=== PATIENT | male | born 1970 | race Caucasian/White ===

== ENCOUNTER 2019-11-03 08:30 | Outpatient (CLI) | payer OTHER, SELFPAY ==
--- NOTE | 2019-11-03 08:42 | US_ITS ---
WS: [id number] ULTRASOUND ABDOMEN LIMITED CLINICAL INFORMATION: ABNORMAL LEVELS OF OTHER SERUM ENZYMES COMPARISON: None. FINDINGS: Liver Size: Normal. Craniocaudal length: 19.0 cm. Echogenicity: Coarse Surface nodularity: None. Mass (size and location): None. Bile ducts Intrahepatic ducts: Normal. Common bile duct diameter: 0.4 cm. Gallbladder Removed Pancreas Normal as visualized. Right kidney: Normal. Hydronephrosis: None. Size: 10.4 cm x 5.3 cm x 4.5 cm. Abdominal aorta and IVC Visualized portions are normal. Ascites: None. US/US abdomen limited 94995 IMPRESSION: 1. Hepatomegaly with diffuse fatty infiltration the liver. 2. Gallbladder has been removed. 3. Normal common bile duct. 4. No hydronephrosis in right kidney.
== END 2019-11-03 08:31 | disposition home or self-care (01) ==
PROVIDERS: Visit Provider Nurse Practitioner Family
DX: R74.8 Abnormal levels of other serum enzymes (principal); K76.0 Fatty (change of) liver, not elsewhere classified; K76.89 Other specified diseases of liver
CPT/HCPCS: 76705

== ENCOUNTER 2019-12-06 11:53 | Outpatient (CLI) | payer OTHER, SELFPAY ==
[2019-12-06 12:02] VITALS: BMI 33.3
--- NOTE | 2019-12-06 12:03 | ECG_ITS ---
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 Interpretive Statements NAME OF STUDY: TREADMILL STRESS ECHOCARDIOGRAM INDICATION: Chest Pain PROCEDURE: At the baseline, the patient's blood pressure was 123/98 with a heart rate of 87. The baseline electrocardiogram showed normal sinus rhythm with nonspecific T wave changes.. The patient exercised for 12 minutes on a standard Cesar protocol. Patient attained a maximum heart rate of 158 beats per minute(92 % of the maximum predicted heart rate) with a blood pressure at the peak exercise of 139/79 mm Hg. The EKG at the peak exercise revealed some nonspecific ST changes. Patient did not have any chest pain or any significant cardiac arrhythmias with the exercise During the recovery phase, there were no new changes. Blood pressure at the end of the recovery phase was not obtained Hg with a heart rate of 96 per minute. CONCLUSION: 1. Nonspecific EKG response to treadmill exercise 2. No exercise-induced chest pain or cardiac arrhythmia 3. Good exercise tolerance, attained a maximum of 13.5 METs Electronically Signed On 12-07-2019 22:29:27 CDT by Leonides Claros M.D. [email or web address]
--- NOTE | 2019-12-06 13:00 | USCV_ITS ---
Stress Echo Adam Claros Age: 49 Gender: M : 1970 Exam Date: 12/06/2019 13:09 Ordering Phys: Leonides Claros MD ([email or web address]) Technologist: Maame Malhotra [place] [facility] [place]: CHEST PAIN Rhythm: Sinus Patient History: Chest pain, Hypertension, Former smoker Cardiac Medications: Dihydropyridine calcium channel alva Medications in past 24 hours: NONE Contrast: Stress Results Protocol: Cesar Total dose(mL): Exercise Duration (min:sec): 12:00 METS: 13.5 Resting HR: 87 Resting BP: 123 / 98 Peak HR: 158 Peak BP: 151 / 98 Max Predicted HR: 170 93 % Max Predicted HR Target HR: 145 Double Product: 52339 Stress Summary: The patient's target heart rate was achieved BP Response: Normal Reason for Termination: Test terminated after reaching target heart rate (85% max predicted) Cardiac Symptoms: Short of Breath ECG Analysis Resting ECG: Please see separate report Stress ECG: Please see separate report Arrhythmia: Please see separate report MEASUREMENTS (Male/Female) Normal Values FINDINGS Baseline echocardiogram revealed normal LV size and ejection fraction. Segmental wall motion analysis revealing no gross wall motion normalities. Mild concentric left and right hypertrophy. Mitral valve appears to have normal morphology. No pericardial effusion. Normal aortic annulus. With a peak exercise, there was good augmentation of all the segments with no exercise-induced wall motion abnormalities. During the recovery phase, there was no new wall motion abnormalities. CONCLUSIONS 1. Normal echocardiographic response to treadmill exercise 2. No significant coronary ischemia, based on the above findings Dr Leonides Claros MD FAC (Electronically Signed) Final Date: 06 December 2019 20:05 S
[2019-12-06 13:49] VITALS: BP 137/68; PULSE 68
== END 2019-12-06 11:54 | disposition home or self-care (01) ==
LOC: CDL 11:55
PROVIDERS: Visit Provider Internal Medicine Cardiovascular Disease
DX: R07.9 Chest pain, unspecified (principal)
CPT/HCPCS: 93017; 93350

== ENCOUNTER 2020-05-08 14:02 | Outpatient (RCR) | payer OTHER, SELFPAY | END 2020-05-19 23:59 | disposition home or self-care (01) | LOC: SPT 14:02 | PROVIDERS: PCP Nurse Practitioner Family; Referring Provider Nurse Practitioner Family; Visit Provider Nurse Practitioner Family | DX: M25.512 Pain in left shoulder (principal) | CPT/HCPCS: 97110; 97140; 97161 ==

== ENCOUNTER 2020-05-20 06:00 | Outpatient (RCR) | payer OTHER, SELFPAY | END 2020-06-16 23:59 | disposition home or self-care (01) | LOC: SPT 06:00 | PROVIDERS: PCP Nurse Practitioner Family; Referring Provider Nurse Practitioner Family; Visit Provider Nurse Practitioner Family | DX: M25.512 Pain in left shoulder (principal) | CPT/HCPCS: 97110 ==

== ENCOUNTER 2020-06-17 06:00 | Outpatient (RCR) | payer OTHER, SELFPAY | END 2020-07-17 23:59 | disposition home or self-care (01) | LOC: SPT 06:00 | PROVIDERS: PCP Nurse Practitioner Family; Referring Provider Nurse Practitioner Family; Visit Provider Nurse Practitioner Family | DX: M25.512 Pain in left shoulder (principal) | CPT/HCPCS: 97032; 97110 ==

== ENCOUNTER 2021-02-18 13:53 | Outpatient (CLI) | payer OTHER, SELFPAY ==
--- NOTE | 2021-02-18 14:02 | XR_ITS ---
WS: [id number] LEFT CALCANEUS TECHNIQUE: Lateral and tangential view. HISTORY: PAIN IN LEFT FOOT COMPARISON: None available. Calcaneus is intact with no fracture or bone destruction. No soft tissue swelling or spurring. Minima l enthesopathy at the Achilles tendon attachment. XR/XR calcaneus LT min 2V 44821 IMPRESSION: 1. No fracture or calcaneal spur. 2. Enthesopathy at the Achilles tendon attachment.
--- NOTE | 2021-02-18 14:02 | XR_ITS ---
WS: [id number] RIGHT CALCANEUS TECHNIQUE: Lateral and tangential view. HISTORY: PAIN IN RIGHT FOOT COMPARISON: None available. Calcaneus is intact with no fracture or bone destruction. No soft tissue swelling or spurring. XR/XR calcaneus RT min 2V 16422 IMPRESSION: Normal RIGHT calcaneus.
== END 2021-02-18 13:54 | disposition home or self-care (01) ==
PROVIDERS: PCP Nurse Practitioner Family; Visit Provider Nurse Practitioner Family
DX: M79.671 Pain in right foot (principal); M79.672 Pain in left foot
CPT/HCPCS: 73650

== ENCOUNTER → 2021-03-31 08:41 | Outpatient (BNVA) | payer OTHER, SELFPAY | PROVIDERS: PCP Nurse Practitioner Family; Referring Provider Nurse Practitioner Family; Visit Provider Podiatrist Foot & Ankle Surgery | DX: M21.41 Flat foot [pes planus] (acquired), right foot (principal); M21.42 Flat foot [pes planus] (acquired), left foot; M72.2 Plantar fascial fibromatosis; M79.671 Pain in right foot; M79.672 Pain in left foot | CPT/HCPCS: 73630 ==

== ENCOUNTER 2021-03-31 09:22 | Outpatient (CLI) | payer OTHER, SELFPAY | END 2021-03-31 09:23 | disposition home or self-care (01) | LOC: SPT 09:23 | PROVIDERS: PCP Nurse Practitioner Family; Visit Provider Podiatrist Foot & Ankle Surgery | DX: Z46.89 Encounter for fitting and adjustment of other specified devices (principal); M79.673 Pain in unspecified foot; M21.41 Flat foot [pes planus] (acquired), right foot; M21.42 Flat foot [pes planus] (acquired), left foot; M72.2 Plantar fascial fibromatosis | CPT/HCPCS: 97760; L4397 ==

== ENCOUNTER 2021-04-17 10:51 | Outpatient (CLI) | payer OTHER, SELFPAY | END 2021-04-17 10:52 | disposition home or self-care (01) | LOC: SPT 10:51 | PROVIDERS: PCP Nurse Practitioner Family; Visit Provider Podiatrist Foot & Ankle Surgery | DX: Z46.89 Encounter for fitting and adjustment of other specified devices (principal); S82.831D Other fracture of upper and lower end of right fibula, subsequent encounter for closed fracture with routine healing; X58.XXXD Exposure to other specified factors, subsequent encounter | CPT/HCPCS: 97760; L3030 ==

== ENCOUNTER 2021-11-15 12:18 | Emergency (ER) | payer OTHER, SELFPAY ==
--- NOTE | 2021-11-15 12:29 | ECG_ITS ---
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 Measurements Intervals [place] Rate: 77 P: 28 NC: 154 QRS: 17 QRSD: 102 T: 14 QT: 383 QTc: 435 Interpretive Statements SINUS RHYTHM INTERPRETATION BASED ON A DEFAULT AGE OF 40 YEARS Compared to ECG 03/21/2017 08:19:43 No significant changes Electronically Signed On 11-16-2021 10:31:17 CDT by Stan Hurtado M.D. [id number]
[2021-11-15 12:31] VITALS: BP 125/79; PULSE 81; RESP 16; TEMP 36.8; O2SAT 96; BMI 33.2
[2021-11-15 13:12] LABS: Basophils # 0.1 10^3/uL (0.0-0.1); Basophils % 1.3 %; Eosinophils # 0.2 10^3/uL (0.0-0.8); Eosinophils % 2.9 %; Hematocrit 45.1 % (42.0-52.0); Hemoglobin 15.4 g/dL (11.7-16.6); Lymphocytes # 1.1 10^3/uL (0.8-4.8); Lymphocytes % 16.5 %; Mean Corpuscular HGB Conc 34.1 g/dL (30.0-36.0); Mean Corpuscular Hemoglobin 29.8 pg (28.0-34.0); Mean Corpuscular Volume 87.2 fl (80-94); Monocytes # 0.3 10^3/uL (0.2-0.9); Neutrophils # 5.07 10^3/uL (1.8-7.7); Nucleated Red Blood Cells % 0 %; Platelet Count 266 10^3/cmm (130-400); Red Blood Count 5.17 10^6/uL (4.1-5.3); Red Cell Distribution Width 12.8 % (12.1-15.1); White Blood Count 6.9 10^3/uL (4.0-10.0)
[2021-11-15 13:21] LABS: Alanine Aminotransferase 54 U/L (0-41); Alkaline Phosphatase 83 IU/L (40-130); Anion Gap 14.5 (5-19); Aspartate Amino Transferase 28 U/L (0-40); Blood Urea Nitrogen 8 mg/dL (6-20); Calcium 9.5 mg/dL (8.5-10.5); Carbon Dioxide 28 mmol/L (22-29); Chloride 102 mmol/L (98-107); Globulin 2.2 g/dL (1.3-4.6); Glomerular Filtration Rate 118.4 mL/min (90-130); Glucose 125 mg/dL (65-115); Osmolality Calculated 292 mOsm/kg (285-295); Potassium 3.5 mmol/L (3.5-5.1); Sodium 141 mmol/L (136-145); Total Bilirubin 0.4 mg/dL (0.15-1.2); Total Protein 7.2 g/dL (6.6-8.7); Troponin(5th) Baseline 6 ng/L (0-15)
[2021-11-15 13:34] VITALS: BP 143/85; PULSE 74; RESP 16; O2SAT 95
--- NOTE | 2021-11-15 13:45 | W.ED.CHESTPA ---
HPI - Chest Pain General: Chief Complaint: Chest Pain Stated Complaint: cp, high BP Time Seen by Provider: 11/15/21 13:37 Source: patient Mode of arrival: ambulatory Limitations: no limitations History of Present Illness: 51-year-old male presents emergency room with complaint of chest discomfort. He had this on and off for last couple weeks had episodes while at rest and with exertion today's episode occurred while exertion and resolved with rest mostly gone at this time. He denies any vomiting or diarrhea has not had any cough no fever sweats or chills no recent medication changes. He has had cardiac evaluation opacities but 2 to 3 years ago an angiogram which use told was negative there is no intervention at that time. MD complaint: chest pain Onset (ago): week(s) Timing of current episode: episodic Prior episodes: Yes Onset: during rest and during exertion Pain location: left chest Pain radiation: none Severity: mild Quality: aching and heaviness Relieving factors: rest Exacerbating factors: exertion (Sometimes other times has occurred at rest) Associated symptoms: Deny abdominal pain, diaphoresis, dyspnea, fever(s), leg edema, nausea, palpitations, sense of impending doom, syncope or vomiting Treatment prior to arrival: none Review of Systems Const: Denies: fever(s), chills, body aches, fatigue, malaise or diaphoresis ENMT: Denies: throat pain, ear or mastoid pain, nasal discharge or nasal congestion Card: Reports: chest pain; Denies: palpitations, irregular heart rhythm, edema or syncope Resp: Denies: dyspnea GI: Denies: abdominal pain, nausea or vomiting : Denies: flank pain, difficulty urinating, dysuria, urinary frequency or urinary urgency Musc: Denies: neck pain or back pain Skin/Breast: Denies: rash or pruritus PFSH ED PFSH: Medical History Anxiety Atypical chest pain Benign essential hypertension with target blood pressure below 140/90 Herpes simplex Hypertension IBS (irritable bowel syndrome) Palpitation Tachycardia Tendonitis of foot Surgical History Hx of appendectomy Hx of cholecystectomy Family History Other Cancer Diabetes Hyperlipidemia Hypertension Denies family history of CAD (coronary artery disease) Clotting disorder Dementia Chronic kidney disease (CKD) Anesthesia complication Bleeding disorder Stroke Social History Smoking and tobacco status: former smoker Alcohol intake: current Alcohol intake frequency: 3 or more drinks per day Physical Exam Const: COMMON NORMALS: no acute distress GENERAL APPEARANCE: cooperative and comfortable ORIENTATION/CONSCIOUSNESS: Yes awake, Yes oriented to person, Yes oriented to place and Yes oriented to time HENMT: COMMON NORMALS: normocephalic, atraumatic, hearing grossly normal bilaterally, external ears normal, EAC's normal, TM's normal bilaterally, Normal nasal mucous membranes and turbinates present, moist oral mucous membranes and oropharynx normal HEAD & SCALP: normocephalic and atraumatic NOSE: Normal nasal mucous membranes and turbinates present EXTERNAL EAR: Yes external ears normal EXTERNAL AUDITORY CANAL: EAC's normal TYMPANIC MEMBRANE: TM's normal bilaterally Eye: COMMON NORMALS: Equal, round and reactive pupils present, EOMs intact bilaterally, conjunctivae normal and no scleral icterus CONJUNCTIVA: Yes conjunctivae normal PUPIL: Yes Equal, round and reactive pupils present Neck/C-Spine: COMMON NORMALS: full ROM, no lymphadenopathy, supple and no JVD Lymph: LYMPHATIC: no lymphadenopathy noted and no lymphedema noted Resp: COMMON NORMALS: normal respiratory effort, No retractions, No use of accessory muscles and clear to auscultation bilaterally AUSCULTATION: clear to auscultation bilaterally Cardio: COMMON NORMALS: no JVD, regular rate, regular rhythm and No murmurs present (Cardio) RATE: regular rate RHYTHM: regular rhythm GI: COMMON NORMALS: Soft to palpation and No hepatosplenomegaly present AUSCULTATION: Yes normoactive bowel sounds PALPATION: Yes Soft to palpation, No Tenderness to palpation present (GI), No Guarding due to palpation present (GI) and Yes No hepatosplenomegaly present Extremity: COMMON NORMALS: normal to inspection, capillary refill normal, no clubbing, cyanosis or edema, no calf tenderness and no pedal edema Neuro: SENSORIUM/ORIENTATION: Yes oriented to person, Yes oriented to place and Yes oriented to time Skin: COMMON NORMALS: no rashes or lesions noted GENERAL SKIN EXAM: no rashes or lesions noted Course Vital Signs: Vital signs: Vital Signs Temperature 98.3 F 11/15/21 12:31 Pulse Rate 68 11/15/21 16:53 Respiratory Rate 16 11/15/21 16:53 Blood Pressure 131/86 11/15/21 16:30 Pulse Oximetry 97 11/15/21 16:53 Oxygen Delivery Me thod 11/15/21 16:30 MDM - Chest Pain Medical Decision Making Labs imaging and EKG are all reviewed. Patient discharged home start on aspirin daily. Set up outpatient stress testing follow-up with cardiology Medical Records I reviewed the patient's medical records. Lab Data I reviewed the patient's lab results. : 11/15/21 12:45 11/15/21 12:45 Radiology Impressions Chest X-Ray 11/15/21 13:46 IMPRESSION: Left basilar streaky opacity, likely atelectasis. Suboptimal lung base assessment. Followup including lateral view may be obtained if clinically indicated. Laboratory Results WBC 6.9 10^3/uL (4.0-10.0) 11/15/21 12:45 RBC 5.17 10^6/uL (4.1-5.3) 11/15/21 12:45 Hgb 15.4 g/dL (11.7-16.6) 11/15/21 12:45 Hct 45.1 % (42.0-52.0) 11/15/21 12:45 MCV 87.2 fl (80-94) 11/15/21 12:45 MCH 29.8 pg (28.0-34.0) 11/15/21 12:45 MCHC 34.1 g/dL (30.0-36.0) 11/15/21 12:45 RDW 12.8 % (12.1-15.1) 11/15/21 12:45 Plt Count 266 10^3/cmm (130-400) 11/15/21 12:45 MPV 11.0 fL (7.4-10.4) H 11/15/21 12:45 Neut % (Auto) 74.0 % 11/15/21 12:45 Lymph % (Auto) 16.5 % 11/15/21 12:45 [place] % (Auto) 5.0 % 11/15/21 12:45 Eos % (Auto) 2.9 % 11/15/21 12:45 Baso % (Auto) 1.3 % 11/15/21 12:45 Neut # (Auto) 5.07 10^3/uL (1.8-7.7) 11/15/21 12:45 Lymph # (Auto) 1.1 10^3/uL (0.8-4.8) 11/15/21 12:45 [place] # (Auto) 0.3 10^3/uL (0.2-0.9) 11/15/21 12:45 Eos # (Auto) 0.2 10^3/uL (0.0-0.8) 11/15/21 12:45 Baso # (Auto) 0.1 10^3/uL (0.0-0.1) 11/15/21 12:45 Nucleated RBC % (auto) 0 % 11/15/21 12:45 Nucleated RBCs # 0.0 /100WBC 11/15/21 12:45 Sodium 141 mmol/L (136-145) 11/15/21 12:45 Potassium 3.5 mmol/L (3.5-5.1) 11/15/21 12:45 Chloride 102 mmol/L (98-107) 11/15/21 12:45 Carbon Dioxide 28 mmol/L (22-29) 11/15/21 12:45 Anion Gap 14.5 (5-19) 11/15/21 12:45 BUN 8 mg/dL (6-20) 11/15/21 12:45 Creatinine 0.7 mg/dL (0.7-1.2) 11/15/21 12:45 GFR Calculation 118.4 mL/min (90-130) 11/15/21 12:45 Glucose 125 mg/dL (65-115) H 11/15/21 12:45 Calculated Osmolality 292 mOsm/kg (285-295) 11/15/21 12:45 Calcium 9.5 mg/dL (8.5-10.5) 11/15/21 12:45 Total Bilirubin 0.4 mg/dL (0.15-1.2) 11/15/21 12:45 AST 28 U/L (0-40) 11/15/21 12:45 ALT 54 U/L (0-41) H 11/15/21 12:45 Alkaline Phosphatase 83 IU/L (40-130) 11/15/21 12:45 Troponin T Baseline 6 ng/L (0-15) 11/15/21 12:45 Troponin T 120 Minute 6.47 ng/L (0-15) 11/15/21 15:19 Delta Troponin T 0.47 ABS# (0-10) 11/15/21 15:19 Total Protein 7.2 g/dL (6.6-8.7) 11/15/21 12:45 Albumin 5.0 g/dL (3.5-5.2) 11/15/21 12:45 Globulin 2.2 g/dL (1.3-4.6) 11/15/21 12:45 Discharge Plan Discharge Patient Disposition: Home Clinical Impression: Chest pain, Benign essential hypertension with target blood pressure below 140/90 Condition: Stable Prescriptions: New aspirin 81 mg tablet,delayed release (DR/EC) 81 mg PO DAILY Qty: 30 0RF telmisartan 80 mg tablet 80 mg PO DAILY Qty: 30 0RF Discontinued telmisartan-hydrochlorothiazid 80-25 mg tablet 1 tab PO DAILY No Action fexofenadine [Shahnaz Allergy] 180 mg tablet 180 mg PO DAILY lorazepam 0.5 mg tablet 0.5 mg PO DAILY PRN (Reason: Anxiety) valacyclovir 500 mg tablet 1,000 mg PO DAILY PRN (Reason: prn) (DME) Custom Molded orthotics See Rx Instructions .Route .MEDSUPPLY Qty: 1 0RF Rx Instructions: As directed (DME) night splint See Rx Instructions .Route .MEDSUPPLY Qty: 1 0RF Rx Instructions: As directed metoprolol succinate 50 mg tablet extended release 24 hr 50 mg PO DAILY Qty: 14 5RF diltiazem HCl 360 mg capsule,extended release 24 hr 360 mg PO DAILY Qty: 90 1RF Discharge Orders: Discharge ED (Routine); Ordered 11/15/21 Ordered By: Schuyler Stevenson Referrals: Yun Marrero FNP [Primary Care Provider] - Discharge Diet: Usual diet Discharge Activity: Limit activity as instructed Patient Instructions: Opioid Safety Activity Restrictions/Additional Instructions: Avoid strenuous activity. Case management make arrangements for you to have a Lexiscan sestamibi stress test and then follow-up with cardiology. Follow-up with cardiology or primary care doctor to evaluate the medication changes made in the emergency room today. Start aspirin daily and do not stop this until your autoclave operator instruction to do so after this stress test depending on its results. Coding Level of Care Code ED Cross Tie Turner for Shukri Fwwinter Exam Comprehensive
--- NOTE | 2021-11-15 13:46 | XRR_ITS ---
PROCEDURE INFORMATION: Exam: XR Chest Exam date and time: 11/15/2021 2:23 PM Age: 51 years old Clinical indication: Sternal or substernal pain; Patient HX: Chest pain/pressure x today TECHNIQUE: Imaging protocol: Radiologic exam of the chest. Views: 1 view. COMPARISON: CR Chest 1 [place] [id number] 03/21/2017 8:29 AM FINDINGS: Lungs: The lung bases are suboptimally assessed due to technique however the upper lungs are clear of focal consolidation. Small left basilar streaky opacity, likely atelectasis. Pleural spaces: Unremarkable. No pleural effusion. No pneumothorax. Heart/Mediastinum: Cardiac silhouette appears normal in size. No obvious vascular congestion. Bones/joints: No acute osseous findings. Other findings: Single view was submitted. XR/XR chest 1V portable [id number] IMPRESSION: Left basilar streaky opacity, likely atelectasis. Suboptimal lung base assessment. Followup including lateral view may be obtained if clinically indicated.
[2021-11-15 13:52] VITALS: BP 143/85; PULSE 69; RESP 16; O2SAT 95
[2021-11-15] MEDS: aspirin 81 mg Chew Tablet 324 MG PO (13:55)
[2021-11-15 14:29] VITALS: BP 122/85; PULSE 71; RESP 16; O2SAT 95
[2021-11-15 15:55] LABS: Troponin 5 2HR 6.47 ng/L (0-15)
[2021-11-15 16:01] LABS: Troponin 5 2HR Delta 0.47 ABS# (0-10)
[2021-11-15 16:30] VITALS: BP 131/86; PULSE 61; RESP 16; O2SAT 96
[2021-11-15 16:53] VITALS: PULSE 68; RESP 16; O2SAT 97
--- NOTE | 2021-11-17 14:25 | DCPLANNER ---
Addendum entered by Michell Baer 04/28/22 12:56: Patient had a stress test scheduled - patient did attend appointment. Original Note: risk compliance manager had message to schedule an outpatient stress test for patient. risk compliance manager faxed signed order to centralized scheduling, who will call patient with appointment information.
== END 2021-11-15 16:52 | disposition home or self-care (01) ==
PROVIDERS: Emergency Provider Family Medicine; PCP Nurse Practitioner Family
DX: R07.9 Chest pain, unspecified (principal); I10 Essential (primary) hypertension; Z87.891 Personal history of nicotine dependence
CPT/HCPCS: 71045; 80053; 84484; 85025; 93005; 99285

== ENCOUNTER → 2022-03-30 09:19 | Outpatient (BNVA) | payer OTHER, SELFPAY | PROVIDERS: PCP Nurse Practitioner Family; Visit Provider Podiatrist Foot & Ankle Surgery | DX: M72.2 Plantar fascial fibromatosis (principal); M21.41 Flat foot [pes planus] (acquired), right foot; M21.42 Flat foot [pes planus] (acquired), left foot | CPT/HCPCS: 73630 ==

== ENCOUNTER 2022-04-14 10:26 | Emergency (ER) | payer OTHER, SELFPAY ==
[2022-04-14] VITALS (68 sets, daily range): BP systolic 113–133; BP diastolic 81–92; PULSE 65–93; RESP 12–31; TEMP 37.1; O2SAT 94–99; BMI 33.2
--- NOTE | 2022-04-14 12:03 | W.ED.CHESTPA ---
HPI - Chest Pain General: Chief Complaint: Chest Pain Stated Complaint: facial numbness Time Seen by Provider: 04/14/22 12:02 History of Present Illness: Patient is a 51-year-old male who comes in with onset of left facial numbness yesterday. He states that the lower half of his left face is benign and had pins and needle sensation. He denies associated facial weakness. He denies any loss of hearing but states he has had ringing in his ears for quite some time. He denies any lower extremity or upper extremity numbness or tingling. He denies any extremity weakness. No prior history of strokes or TIAs. No difficulty with speech. He does have a history of hypertension. He is not on aspirin. His symptoms have been constant since yesterday. Associated symptoms: Deny abdominal pain, dyspnea, fever(s), nausea, palpitations or vomiting Review of Systems General: Reports: 10 or more systems reviewed and unremarkable except in HPI and below Const: Denies: fever(s) or chills Eyes: Denies: change in vision Card: Denies: chest pain or palpitations Resp: Denies: dyspnea or productive cough GI: Denies: abdominal pain, nausea or vomiting : Denies: flank pain Musc: Reports: extremity pain Skin/Breast: Denies: rash Neuro: Reports: other (numbness of the left side of his face); Denies: numbness in extremities, weakness in extremities, sensory changes, lack of coordination, difficulty walking, frequent falls or difficulty communicating thoughts Psych: Denies: suicidal ideation Marcos/Lymph: Denies: easy bruising PFS ED PFSH: Medical History (Updated 04/14/22 @ 16:09 by Bekah Peters MD) Anxiety Atypical chest pain Benign essential hypertension with target blood pressure below 140/90 Herpes simplex Hypertension IBS (irritable bowel syndrome) Palpitation Tachycardia Tendonitis of foot Surgical History Hx of appendectomy Hx of cholecystectomy Family History Other Cancer Diabetes Hyperlipidemia Hypertension Denies family history of CAD (coronary artery disease) Clotting disorder Dementia Chronic kidney disease (CKD) Anesthesia complication Bleeding disorder Stroke Social History Smoking and tobacco status: former smoker Alcohol intake: current Alcohol intake frequency: 3 or more drinks per day Physical Exam Const: COMMON NORMALS: patient oriented x3 HENMT: COMMON NORMALS: normocephalic, atraumatic, external ears normal and moist oral mucous membranes HEAD & SCALP: normocephalic and atraumatic EXTERNAL EAR: Yes external ears normal Eye: COMMON NORMALS: Equal, round and reactive pupils present, EOMs intact bilaterally and conjunctivae normal CONJUNCTIVA: Yes conjunctivae normal PUPIL: Yes Equal, round and reactive pupils present Neck/C-Spine: COMMON NORMALS: full ROM, no lymphadenopathy, no JVD and No carotid bruits Chest: COMMONS NORMALS: normal palpation of entire chest wall Resp: COMMON NORMALS: normal respiratory effort, No retractions, No use of accessory muscles and clear to auscultation bilaterally AUSCULTATION: clear to auscultation bilaterally Cardio: COMMON NORMALS: no JVD, regular rate, regular rhythm and No murmurs present (Cardio) RATE: regular rate RHYTHM: regular rhythm GI: COMMON NORMALS: Normal to inspection, nondistended, normoactive bowel sounds present Extremity: OTHER: No edema or calf swelling. Neuro: COMMON NORMALS: patient oriented x3, moves all extremities, no sensory deficits noted, deep tendon reflexes 2+ bilaterally and gait normal OTHER: Decree sensation on the left side of the face, will maxillary and mandibular region. Forehead sensation is intact. Cranial nerves are otherwise normal. Bilateral upper and lower extremity motor and sensory function are normal. Course ED course: 51-year-old male with history of hypertension who presents with 24 hours of left facial paresthesia. There is no associated motor function deficit such as facial droop or lid lag to suggest like Stewart's palsy. He does not have a rash and no pain so unlikely is herpes zoster. Patient is in normal sinus rhythm on his EKG. He has had a CT of his head which is negative, CT arteriogram of the head and the neck which is unremarkable. He had an MRI which shows no acute stroke but does show some microvascular ischemic changes that are chronic. Patient's laboratory work-up, blood sugar is 130. With the patient's being so minimal, I do not feel the patient needs further evaluation at this time. He has been given 4 baby aspirin here. We will plan to start him on aspirin daily as well as Plavix and Crestor daily. Recommend he follow-up this week with his primary care doctor. Return precautions have been discussed. I have strongly encouraged him to return within 1 to 2 hours of onset of his symptoms if he has any recurrent or worsening neurologic symptoms. Patient verbalizes understanding and is stable for discharge home. Reevaluation(s): Reevaluation #1: Patient continues to have very mild paresthesias on his left cheek area. blood pressure is normal. Blood sugar is normal. Vital Signs: Vital signs: Vital Signs Temperature 98.8 F 04/14/22 10:46 Pulse Rate 77 04/14/22 15:55 Respiratory Rate 16 04/14/22 15:55 Blood Pressure 121/88 04/14/22 15:55 Pulse Oximetry 96 04/14/22 15:55 Oxygen Delivery Me thod 04/14/22 10:46 MDM - Chest Pain Medical Decision Making 51-year-old male who presents with 24 hours of left lower facial numbness. He has no motor deficits. Concerned that this could be a TIA. We will proceed with a TIA work-up. We will place an IV, obtain a CT of his head, CTA of his head and neck, laboratory studies, chest x-ray and EKG. If those are negative, the patient would be best benefited by an MRI today and be able to be discharged on aspirin, Plavix and lovastatin. Differential includes TIA, Stewart's palsy, hypercalcemia, to geminal neuralgia, herpes zoster 0 Lab Data 04/14/22 11:11 04/14/22 11:11 Radiology Impressions Chest X-Ray 04/14/22 12:13 Impression: Negative chest. Head/Neck CTA 04/14/22 12:13 IMPRESSION: 1. No evidence of intracranial flow-limiting stenosis. 2. No significant ICA stenosis bilaterally. Both ICAs are patent to the skull base. 3. LEFT dominant vertebral artery. Both vertebral arteries are patent. 4. No other acute findings. Head CT 04/14/22 12:14 IMPRESSION: 1. No evidence of intracranial hemorrhage or mass effect. 2. No evidence of mass or mass effect. 3. No acute intracranial findings. Notified Bekah Peters MD at 04/14/2022 12:41 PM. Head MRI 04/14/22 13:12 IMPRESSION: 1. No evidence for an acute infarct. Diffusion-weighted imaging is normal. 2. Moderate small vessel ischemic disease with no prior large infarct. Laboratory Results WBC 4.5 10^3/uL (4.0-10.0) 04/14/22 11:11 RBC 5.22 10^6/uL (4.1-5.3) 04/14/22 11:11 Hgb 15.5 g/dL (11.7-16.6) 04/14/22 11:11 Hct 45.4 % (42.0-52.0) 04/14/22 11:11 MCV 87.0 fl (80-94) 04/14/22 11:11 MCH 29.7 pg (28.0-34.0) 04/14/22 11:11 MCHC 34.1 g/dL (30.0-36.0) 04/14/22 11:11 RDW 12.1 % (12.1-15.1) 04/14/22 11:11 Plt Count 247 10^3/cmm (130-400) 04/14/22 11:11 MPV 11.2 fL (7.4-10.4) H 04/14/22 11:11 Neut % (Auto) 67.9 % 04/14/22 11:11 Lymph % (Auto) 22.5 % 04/14/22 11:11 [place] % (Auto) 5.5 % 04/14/22 11:11 Eos % (Auto) 2.4 % 04/14/22 11:11 Baso % (Auto) 1.5 % 04/14/22 11:11 Neut # (Auto) 3.07 10^3/uL (1.8-7.7) 04/14/22 11:11 Lymph # (Auto) 1.0 10^3/uL (0.8-4.8) 04/14/22 11:11 [place] # (Auto) 0.3 10^3/uL (0.2-0.9) 04/14/22 11:11 Eos # (Auto) 0.1 10^3/uL (0.0-0.8) 04/14/22 11:11 Baso # (Auto) 0.1 10^3/uL (0.0-0.1) 04/14/22 11:11 Nucleated RBC % (auto) 0 % 04/14/22 11:11 Nucleated RBCs # 0.0 /100WBC 04/14/22 11:11 ESR 6 mm/hr (0-10) 04/14/22 11:11 PT 13.20 SECONDS (12.1-14.9) 04/14/22 11:11 INR 0.98 (0.8-1.2) 04/14/22 11:11 APTT 24.1 SECONDS (23.9-36.7) 04/14/22 11:11 Sodium 136 mmol/L (136-145) 04/14/22 11:11 Potassium 3.5 mmol/L (3.5-5.1) 04/14/22 11:11 Chloride 103 mmol/L (98-107) 04/14/22 11:11 Carbon Dioxide 21 mmol/L (22-29) L 04/14/22 11:11 Anion Gap 15.5 (5-19) 04/14/22 11:11 BUN 9 mg/dL (6-20) 04/14/22 11:11 Creatinine 0.6 mg/dL (0.7-1.2) L 04/14/22 11:11 GFR Calculation 141.5 mL/min (90-130) H 04/14/22 11:11 Glucose 130 mg/dL (65-115) H 04/14/22 11:11 Calculated Osmolality 282 mOsm/kg (285-295) L 04/14/22 11:11 Calcium 9.3 mg/dL (8.5-10.5) 04/14/22 11:11 Total Bilirubin 0.6 mg/dL (0.15-1.2) 04/14/22 11:11 AST 29 U/L (0-40) 04/14/22 11:11 ALT 54 U/L (0-41) H 04/14/22 11:11 Alkaline Phosphatase 68 U/L (40-130) 04/14/22 11:11 Total Protein 7.2 g/dL (6.6-8.7) 04/14/22 11:11 Albumin 4.4 g/dL (3.5-5.2) 04/14/22 11:11 Globulin 2.8 g/dL (1.3-4.6) 04/14/22 11:11 Urine Color Yellow (Yellow) 04/14/22 13:07 Urine Appearance Clear (CLEAR) 04/14/22 13:07 Urine pH 7 (5-7) 04/14/22 13:07 Ur Specific [place] 1.010 (1.005-1.030) 04/14/22 13:07 Urine Protein Neg (Negative) 04/14/22 13:07 Urine Glucose (UA) Norm (Normal) 04/14/22 13:07 Urine Ketones Negative (Negative) 04/14/22 13:07 Urine Blood Neg (Negative) 04/14/22 13:07 Urine Nitrate Negative (Negative) 04/14/22 13:07 Urine Bilirubin Neg (Negative) 04/14/22 13:07 Urine Urobilinogen Norm mg/dL (Negative) 04/14/22 13:07 Ur Leukocyte Esterase Negative (Negative) 04/14/22 13:07 Urine Opiates Screen Negative ng/mL (Negative) 04/14/22 13:07 Ur Barbiturates Screen Negative ng/mL (Negative) 04/14/22 13:07 Ur Phencyclidine Scrn Negative ng/mL (Negative) 04/14/22 13:07 Ur Amphetamines Screen Negative ng/mL (Negative) 04/14/22 13:07 U Benzodiazepines Scrn Negative ng/mL (Negative) 04/14/22 13:07 Urine Cocaine Screen Negative ng/mL (Negative) 04/14/22 13:07 U Marijuana (THC) Screen Negative ng/mL (Negative) 04/14/22 13:07 Discharge Plan Discharge Patient Disposition: Home Clinical Impression: Transient ischemic attack Condition: Stable Prescriptions: New Plavix 75 mg tablet 75 mg PO DAILY Qty: 30 0RF Crestor 10 mg tablet 10 mg PO DAILY Qty: 30 0RF No Action fexofenadine [Shahnaz Allergy] 180 mg tablet 180 mg PO DAILY lorazepam 0.5 mg tablet 0.5 mg PO DAILY PRN (Reason: Anxiety) valacyclovir 500 mg tablet 1,000 mg PO DAILY PRN (Reason: prn) (DME) Custom Molded orthotics See Rx Instructions .Route .MEDSUPPLY Qty: 1 0RF Rx Instructions: As directed (DME) night splint See Rx Instructions .Route .MEDSUPPLY Qty: 1 0RF Rx Instructions: As directed metoprolol succinate 50 mg tablet extended release 24 hr 50 mg PO DAILY Qty: 14 5RF prednisone 10 mg tablets,dose pack 10 mg PO DAILY Qty: 42 0RF Rx Instructions: Provided patient with instructions diltiazem HCl 360 mg capsule,extended release 24 hr 360 mg PO DAILY Qty: 90 1RF aspirin 81 mg tablet,delayed release (DR/EC) 81 mg PO DAILY Qty: 30 0RF telmisartan 80 mg tablet 80 mg PO DAILY Qty: 30 0RF Discharge Orders: Discharge ED (Routine); Ordered 04/14/22 Ordered By: Bekah Peters Referrals: Yun Marrero FNP [Primary Care Provider] - Discharge Diet: Advance as tolerated Discharge Activity: Resume usual activity Patient Instructions: Transient Ischemic Attack (ED), Opioid Safety, Pain Management Activity Restrictions/Additional Instructions: Continue your baby aspirin daily. Take the Plavix daily in the morning. Take the Crestor daily at night. Return immediately to the ER if you develop any worsening symptoms. It is important that you do not wait more than 1 or 2 hours if you develop neurologic symptoms such as loss of use of one arm, and arm and the leg, difficulty speaking, visual changes etc. Continue other regular medications. Return if any problems. Follow-up in 2 to 3 days with your primary care doctor. Coding Level of Care Code ED Full Stack Developer for 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 Exam Comprehensive Medical Decision Making High Complexity NIH stroke score NIHSS Level Of Consciousness - 1a: 0 Level Of Consciousness Questions - 1b: Both Correct Level Of Consciousness Commands - 1c: Both Correct Best Gaze - 2: Normal Visual Clay - 3: No Visual Loss Facial Palsy - 4: Normal Motor Arm Right - 5: No Drift Motor Arm Left - 5: No Drift Motor Leg Right - 6: No Drift Motor Leg Left - 6: No Drift Limb Ataxia - 7: Absent Sensory - 8: Mild To Moderate Loss (left lower face) Best Language - 9: No Aphasia Dysarthia - 10: Normal Extinction And Inattention - 11: 0 Score Total Score: 1
--- NOTE | 2022-04-14 12:13 | CT_ITS ---
WS: [id number] CTA HEAD AND NECK TECHNIQUE: Contrast enhanced CTA of the head and neck with coronal and sagittal reformatted images an d maximum intensity projection (MIP) images. NASCET criteria utilized. CLINICAL INFORMATION: facial numbness TIA COMPARISON: None. DLP: 510.[address] scans at [facility] use at least one of these dose optimization techniques: automated e xposure control; mA and/or kV adjustment per patient size (includes targeted exams where dose is matc hed to clinical indication); or iterative reconstruction. FINDINGS: RIGHT: RIGHT common carotid artery is patent. No significant RIGHT ICA stenosis. ICA is patent to the skull base. LEFT: LEFT common carotid artery is patent. No significant LEFT ICA stenosis. LEFT ICA is patent to t he skull base. INTRACRANIAL CTA: LEFT dominant vertebral artery. Both vertebral arteries are patent. Basilar artery is patent. Persist ent RIGHT ASSISTANT FIELD HOCKEY COACH. Persistent LEFT posterior communicating artery. Normal vascularity to the ASSISTANT FIELD HOCKEY COACH te rritory bilaterally. Both ICAs are patent at the skull base. Hypoplastic RIGHT A1 segment. Normal vascularity to the LEEANNE a nd MCA territories bilaterally. No evidence of flow-limiting stenosis or aneurysm. Normal visualized dural venous sinuses. Normal posterior nasopharynx. Lung apices are well aerated. Visualized thyroid gland appears normal. CT/CT angio headneck* [id number] IMPRESSION: 1. No evidence of intracranial flow-limiting stenosis. 2. No significant ICA stenosis bilaterally. Both ICAs are patent to the skull base. 3. LEFT dominant vertebral artery. Both vertebral arteries are patent. 4. No other acute findings.
--- NOTE | 2022-04-14 12:13 | XR_ITS ---
WS: [id number] Portable AP upright chest, 04/14/2022 Clinical Data: TIA Comparison: Portable chest, 11/15/2021 Findings: No nodules, masses or effusions are seen. The heart is normal. The pulmonary vascularity is not increased. No pneumonia or pneumothorax is seen. There are monitor leads on the chest wall. XR/XR chest 1V portable [id number] Impression: Negative chest.
--- NOTE | 2022-04-14 12:14 | CT_ITS ---
WS: [id number] CT HEAD TECHNIQUE: Noncontrast CT of the head obtained from the skullbase to the vertex. CLINICAL INFORMATION: Symptoms of acute stroke COMPARISON: None. DLP: [address] scans at [facility] use at least one of these dose optimization techniques: automated e xposure control; mA and/or kV adjustment per patient size (includes targeted exams where dose is matc hed to clinical indication); or iterative reconstruction. FINDINGS: No evidence of intracranial hemorrhage or mass effect. Ventricular system and basal cisterns are gonzales nt. Mild small vessel changes with mild parenchymal volume loss. No extra-axial fluid collections. No evidence of mass or mass effect. Mild mucosal thickening ethmoid air cells. Mastoid air cells well aerated. CT/CT head thrombolytic [id number] IMPRESSION: 1. No evidence of intracranial hemorrhage or mass effect. 2. No evidence of mass or mass effect. 3. No acute intracranial findings. Notified Bekah Peters MD at 04/14/2022 12:41 PM.
--- NOTE | 2022-04-14 12:14 | ECG_ITS ---
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 Measurements Intervals [place] Rate: 67 P: 19 CO: 144 QRS: 16 QRSD: 106 T: -9 QT: 403 QTc: 428 Interpretive Statements SINUS RHYTHM MINIMAL VOLTAGE CRITERIA FOR LVH, CONSIDER NORMAL VARIANT [MEETS CRITERIA IN ONE OF: R(aVL), S(V1), R(V5), R(V5/V6)+S(V1)] INFERIOR MYOCARDIAL INFARCTION , OF INDETERMINATE AGE [40+ ms Q WAVE AND/OR ST/T ABNORMALITY IN II/aVF] Compared to ECG 11/15/2021 12:29:39 Myocardial infarct finding now present Electronically Signed On 04-14-2022 14:09:17 HISTORICAL MANUSCRIPTS CURATOR by Leander Jean M.D. [id number]
[2022-04-14 12:32] LABS: Basophils # 0.1 10^3/uL (0.0-0.1); Basophils % 1.5 %; Eosinophils # 0.1 10^3/uL (0.0-0.8); Eosinophils % 2.4 %; Hematocrit 45.4 % (42.0-52.0); Hemoglobin 15.5 g/dL (11.7-16.6); Lymphocytes % 22.5 %; Mean Corpuscular HGB Conc 34.1 g/dL (30.0-36.0); Mean Corpuscular Hemoglobin 29.7 pg (28.0-34.0); Mean Platelet Volume 11.2 fL (7.4-10.4); Monocytes # 0.3 10^3/uL (0.2-0.9); Monocytes % 5.5 %; Neutrophils # 3.07 10^3/uL (1.8-7.7); Neutrophils % 67.9 %; Nucleated Red Blood Cells % 0 %; Platelet Count 247 10^3/cmm (130-400); Red Blood Count 5.22 10^6/uL (4.1-5.3); Red Cell Distribution Width 12.1 % (12.1-15.1); White Blood Count 4.5 10^3/uL (4.0-10.0)
[2022-04-14 12:43] LABS: Alanine Aminotransferase 54 U/L (0-41); Albumin Level 4.4 g/dL (3.5-5.2); Alkaline Phosphatase 68 U/L (40-130); Anion Gap 15.5 (5-19); Aspartate Amino Transferase 29 U/L (0-40); Blood Urea Nitrogen 9 mg/dL (6-20); Calcium 9.3 mg/dL (8.5-10.5); Carbon Dioxide 21 mmol/L (22-29); Chloride 103 mmol/L (98-107); Globulin 2.8 g/dL (1.3-4.6); Glomerular Filtration Rate 141.5 mL/min (90-130); Glucose 130 mg/dL (65-115); INR 0.98 (0.8-1.2); Osmolality Calculated 282 mOsm/kg (285-295); Potassium 3.5 mmol/L (3.5-5.1); Sodium 136 mmol/L (136-145); Total Bilirubin 0.6 mg/dL (0.15-1.2); Total Protein 7.2 g/dL (6.6-8.7)
[2022-04-14 12:44] LABS: Partial Thromboplastin Time 24.1 SECONDS (23.9-36.7)
[2022-04-14 13:09] LABS: Erythrocyte Sedimentation Rate 6 mm/hr (0-10)
--- NOTE | 2022-04-14 13:12 | MR_ITS ---
WS: [id number] MRI BRAIN WITHOUT CONTRAST HISTORY: cva COMPARISON: CT head 04/14/2022 TECHNIQUE: Diffusion imaging, multiplanar T1, T2 and FLAIR imaging obtained. No evidence for acute infarct or hemorrhage. Hdez-white matter differentiation is normal. No acute infarct. Moderate small vessel ischemic changes in the white matter. No prior large territor y infarct. Ventricles and extra-axial spaces are normal. No inferior displacement of cerebellar tonsils. The sella turcica and pituitary gland are unremarkabl e. Dural venous sinuses and wrangell of [place] demonstrate no abnormality on this unenhanced studies. Paranasal sinuses: Mild mucoperiosteal thickening in the ethmoid air cells. Otherwise clear. Mastoid air cells: Mild RIGHT mastoid air cell fluid. Calvarium and scalp: Intact. MR/MR head wo con* [id number] IMPRESSION: 1. No evidence for an acute infarct. Diffusion-weighted imaging is normal. 2. Moderate small vessel ischemic disease with no prior large infarct.
[2022-04-14 13:13] LABS: Add Urine Microscopic? NO; Charge for UA Resulting for Rev
[2022-04-14 13:19] LABS: Bilirubin Urine Neg (Negative); Blood Urine Neg (Negative); Glucose Urine UA Norm (Normal); Ketones Urine Negative (Negative); Leukocyte Esterase Urine Negative (Negative); Nitrate Urine Negative (Negative); Protein Urine Neg (Negative); Urine Appearance Clear (CLEAR); Urine Color Yellow (Yellow); Urobilinogen Urine Norm (Negative); pH Urine 7 (5-7)
[2022-04-14] MEDS: aspirin 325 mg Tablet PO (13:21)
[2022-04-14 13:38] LABS: Amphetamines Screen Urine Negative (Negative); Barbiturates Screen Urine Negative (Negative); Benzodiazepines Screen Urine Negative (Negative); Cocaine Screen Urine Negative (Negative); Opiate Screen Urine Negative (Negative); PCP Screen Urine Negative (Negative); THC Screen Urine Negative (Negative)
== END 2022-04-14 16:47 | disposition home or self-care (01) ==
PROVIDERS: Emergency Provider Emergency Medicine; PCP Nurse Practitioner Family
DX: G45.9 Transient cerebral ischemic attack, unspecified (principal); Z79.82 Long term (current) use of aspirin; Z87.891 Personal history of nicotine dependence; I10 Essential (primary) hypertension
CPT/HCPCS: 70450; 70496; 70498; 70551; 71045; 80053; 80306; 81003; 85025; 85610; 85651; 85730; 93005; 99285; Q9967

== ENCOUNTER 2022-04-15 06:00 | Outpatient (RCR) | payer OTHER, SELFPAY | END 2022-04-18 23:59 | disposition home or self-care (01) | LOC: SPT 06:00 | PROVIDERS: PCP Nurse Practitioner Family; Visit Provider Podiatrist Foot & Ankle Surgery | DX: M72.2 Plantar fascial fibromatosis (principal) | CPT/HCPCS: 97033; 97035; 97140; 97161 ==

== ENCOUNTER 2022-04-19 06:00 | Outpatient (RCR) | payer OTHER, SELFPAY | END 2022-05-19 23:59 | disposition home or self-care (01) | LOC: SPT 06:00 | PROVIDERS: PCP Nurse Practitioner Family; Visit Provider Podiatrist Foot & Ankle Surgery | DX: M72.2 Plantar fascial fibromatosis (principal) | CPT/HCPCS: 97033; 97035; 97140 ==

== ENCOUNTER 2022-05-05 20:52 | Emergency (ER) | payer OTHER, SELFPAY ==
[2022-05-05 20:56] VITALS: BP 144/93; PULSE 97; RESP 20; TEMP 36.6; O2SAT 95; BMI 32.8
--- NOTE | 2022-05-05 21:05 | ECG_ITS ---
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 Measurements Intervals [place] Rate: 95 P: 22 OK: 156 QRS: 4 QRSD: 105 T: 12 QT: 365 QTc: 460 Interpretive Statements SINUS RHYTHM MINIMAL ST DEPRESSION [0.025+ mV ST DEPRESSION] Compared to ECG 04/14/2022 12:33:23 ST (T wave) deviation now present Myocardial infarct finding no longer present Electronically Signed On 05-06-2022 7:36:39 DOOR TO DOOR SALESMAN by Haydee Morgan M.D. [id number]
== END 2022-05-06 00:19 | disposition left against medical advice (07) ==
PROVIDERS: Emergency Provider Family Medicine; PCP Nurse Practitioner Family
DX: Z53.21 Procedure and treatment not carried out due to patient leaving prior to being seen by health care provider (principal)
CPT/HCPCS: 93005

== ENCOUNTER 2022-05-09 15:50 | Emergency (ER) | payer OTHER, SELFPAY ==
[2022-05-09 16:05] VITALS: BP 118/79; PULSE 89; RESP 16; TEMP 36.7; O2SAT 95
--- NOTE | 2022-05-09 16:10 | ECG_ITS ---
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 Measurements Intervals [place] Rate: 86 P: 27 [place]: 151 QRS: 1 QRSD: 112 T: 11 QT: 369 QTc: 441 Interpretive Statements SINUS RHYTHM Compared to ECG 05/05/2022 21:05:13 ST (T wave) deviation no longer present Electronically Signed On 05-10-2022 8:47:18 STADIUM ATTENDANT by Haydee Morgan M.D. [id number]
--- NOTE | 2022-05-09 18:36 | XRR_ITS ---
PROCEDURE INFORMATION: Exam: XR Chest Exam date and time: 05/09/2022 7:23 PM Age: 51 years old Clinical indication: Other: Not specified; Patient HX: C/O weird chest pain starting today TECHNIQUE: Imaging protocol: Radiologic exam of the chest. Views: 1 view. COMPARISON: CR XR chest 1V portable [id number] 04/14/2022 12:42 PM FINDINGS: Lungs: Unremarkable. No consolidation. Pleural spaces: Unremarkable. No pleural effusion. No pneumothorax. Heart/Mediastinum: Unremarkable. No cardiomegaly. Bones/joints: Unremarkable. XR/XR chest 1V portable [id number] IMPRESSION: No acute findings.
--- NOTE | 2022-05-09 19:19 | W.ED.GENADLT ---
Documented by User: LUIS Mena 05/09/22 20:33 HPI - General Adult General: Chief complaint: Chest Pain Stated complaint: chest pain Time Seen by Provider: 05/09/22 19:06 Source: patient Mode of arrival: ambulatory Limitations: no limitations History of Present Illness: Patient is a 51-year-old male who presents to ED today with a complaint of transient and labile blood pressures and heart rates. Patient states he has been having issues for years now . He states normally his blood pressure is controlled but he will have intermittent spikes as high as 170s/100. He states heart rate will sometimes be close to 100 even when he is at rest. He states sometimes these spikes are accompanied with chest pain. Patient states he has underwent extensive already cardiac evaluation including chest angiograms, stress tests, echos, holter monitors, etc all of which are reportedly normal. He states he has even went as far as being worked up and evaluated for a pheochromocytoma and other catecholamine producing tumors-all were negative. patient was initially triaged here as a chest pain however after speaking to him he is telling me he is not having any chest discomfort currently. Vitals upon arrival are completely normal. Patient states he does have a as needed blood pressure medication (clonidine) that he is supposed to take for blood pressure spikes but usually does not. Patient wonders if symptoms could be secondary to anxiety. Onset (ago): year(s) Pain Consistency: intermittent and now resolved Relieving factors: none Exacerbating factors: none Associated symptoms: Deny chest pain, dyspnea, headache(s), malaise, nausea, rash, palpitations, syncope or vomiting Review of Systems Const: Denies: fever(s), chills, body aches, fatigue or malaise Eyes: Denies: change in vision, blurry vision or photophobia Card: Denies: chest pain, palpitations, irregular heart rhythm, edema, swelling of feet/ankles, lightheadedness, syncope, pre-syncope, dyspnea on exertion, orthopnea, leg pain with exertion or acrocyanosis Resp: Denies: dyspnea, productive cough, pain on inspiration or chest congestion GI: Denies: abdominal pain, nausea, vomiting, heartburn or diarrhea : Denies: difficulty urinating or dysuria Musc: Denies: neck pain, back pain or joint pain Skin/Breast: Denies: rash Neuro: Denies: headache(s), numbness in extremities, weakness in extremities, sensory changes or dizziness PFSH ED PFSH: Medical History Anxiety Atypical chest pain Benign essential hypertension with target blood pressure below 140/90 Herpes simplex Hypertension IBS (irritable bowel syndrome) Palpitation Tachycardia Tendonitis of foot Surgical History Hx of appendectomy Hx of cholecystectomy Family History Other Cancer Diabetes Hyperlipidemia Hypertension Denies family history of CAD (coronary artery disease) Clotting disorder Dementia Chronic kidney disease (CKD) Anesthesia complication Bleeding disorder Stroke Social History Smoking and tobacco status: former smoker Alcohol intake: current Alcohol intake frequency: 3 or more drinks per day Physical Exam Const: COMMON NORMALS: no acute distress, average body habitus, patient oriented x3, no limitations, healthy appearing, alert and well nourished GENERAL APPEARANCE: cooperative ORIENTATION/CONSCIOUSNESS: Yes awake, Yes oriented to person, Yes oriented to place and Yes oriented to time Neck/C-Spine: COMMON NORMALS: full ROM, no lymphadenopathy, supple, no meningeal signs, no JVD and No carotid bruits Chest: COMMONS NORMALS: normal inspection of the chest Resp: COMMON NORMALS: normal respiratory effort and clear to auscultation bilaterally AUSCULTATION: clear to auscultation bilaterally Cardio: COMMON NORMALS: no JVD, regular rate and regular rhythm RATE: regular rate RHYTHM: regular rhythm : COMMON NORMALS: Yes no CVA tenderness BLADDER/KIDNEY EXAM: Yes no CVA tenderness Back/Pelvis: COMMON NORMALS: no CVA tenderness and thoracic and lumbar spine normal to inspection Extremity: COMMON NORMALS: normal to inspection, capillary refill normal, no clubbing, cyanosis or edema, no calf tenderness and no pedal edema GENERAL: Yes normal exam except as noted Neuro: KAI COMA SCALE: document GCS findings [place] coma scale eye opening: Spontaneous [place] coma scale verbal response: Orientated Kai coma scale motor response: Obey commands [place] coma scale total score: 15 COMMON NORMALS: patient oriented x3, CN's II-XII intact bilaterally, moves all extremities, no focal motor deficits and no sensory deficits noted SENSORIUM/ORIENTATION: Yes alert, Yes oriented to person, Yes oriented to place and Yes oriented to time MENINGEAL SIGNS: Yes no meningeal signs Skin: COMMON NORMALS: no rashes or lesions noted GENERAL SKIN EXAM: no rashes or lesions noted Course Vital Signs: Vital signs: Vital Signs Temperature 98.1 F 05/09/22 16:05 Pulse Rate 70 05/09/22 20:32 Respiratory Rate 16 05/09/22 20:32 Blood Pressure 137/89 05/09/22 20:32 Pulse Oximetry 95 05/09/22 20:32 Oxygen Delivery Me thod 05/09/22 16:05 MDM - General Adult Medical Decision Making By patient's history he has had very extensive previous work-ups for his symptoms. Upon arrival blood pressure is 118/79 with a pulse of 89. He is completely asymptomatic during my assessment. ED evaluation here is essentially benign. 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 I recommend he follow-up with them. There is nothing emergent that needs to be completed from our end at this time. Return ED precautions given. Lab Data 05/09/22 19:28 05/09/22 19:28 Radiology Impressions Chest X-Ray 05/09/22 18:36 IMPRESSION: No acute findings. Laboratory Results WBC 5.8 10^3/uL (4.0-10.0) 05/09/22 19: RBC 5.33 10^6/uL (4.1-5.3) H 05/09/22 19: Hgb 15.7 g/dL (11.7-16.6) 05/09/22 19: Hct 45.3 % (42.0-52.0) 05/09/22 19: MCV 85.0 fl (80-94) 05/09/22 19: MCH 29.5 pg (28.0-34.0) 05/09/22 19: MCHC 34.7 g/dL (30.0-36.0) 05/09/22 19: RDW 11.9 % (12.1-15.1) L 05/09/22 19: Plt Count 257 10^3/cmm (130-400) 05/09/22 19: MPV 10.4 fL (7.4-10.4) 05/09/22 19: Neut % (Auto) 62.0 % 05/09/22 19: Lymph % (Auto) 26.9 % 05/09/22 19: [place] % (Auto) 6.4 % 05/09/22 19: Eos % (Auto) 3.5 % 05/09/22 19: Baso % (Auto) 1.0 % 05/09/22 19: Neut # (Auto) 3.57 10^3/uL (1.8-7.7) 05/09/22 19: Lymph # (Auto) 1.6 10^3/uL (0.8-4.8) 05/09/22: [place] # (Auto) 0.4 10^3/uL (0.2-0.9) 05/09/22: Eos # (Auto) 0.2 10^3/uL (0.0-0.8) 05/09/22: Baso # (Auto) 0.1 10^3/uL (0.0-0.1) 05/09/22 19: Nucleated RBC % (auto) 0 % 05/09/22: Nucleated RBCs # 0.0 /100WBC 05/09/22 19: Sodium 138 mmol/L (136-145) 05/09/22 19: Potassium 3.0 mmol/L (3.5-5.1) L 05/09/22: Chloride 99 mmol/L (98-107) 05/09/22: Carbon Dioxide 27 mmol/L (22-29) 05/09/22: Anion Gap 15.0 (5-19) 05/09/22 19: BUN 7 mg/dL (6-20) 05/09/22 19: Creatinine 0.6 mg/dL (0.7-1.2) L 05/09/22: GFR Calculation 141.5 mL/min (90-130) H 05/09/22 19: Glucose 98 mg/dL (65-115) 05/09/22: Calculated Osmolality 284 mOsm/kg (285-295) L 05/09/22: Calcium 9.9 mg/dL (8.5-10.5) 05/09/22 19:28 Total Bilirubin 0.8 mg/dL (0.15-1.2) 05/09/22 19:28 AST 21 U/L (0-40) 05/09/22 19:28 ALT 47 U/L (0-41) H 05/09/22 19:28 Alkaline Phosphatase 85 U/L (40-130) 05/09/22 19:28 Troponin T Baseline 6 ng/L (0-15) 05/09/22 19:28 Total Protein 7.9 g/dL (6.6-8.7) 05/09/22 19:28 Albumin 4.9 g/dL (3.5-5.2) 05/09/22 19:28 Globulin 3.0 g/dL (1.3-4.6) 05/09/22 19:28 Discharge Plan Discharge Patient Disposition: Home Clinical Impression: Labile blood pressure Condition: Stable Prescriptions: No Action fexofenadine [Shahnaz Allergy] 180 mg tablet 180 mg PO DAILY lorazepam 0.5 mg tablet 0.5 mg PO DAILY PRN (Reason: Anxiety) valacyclovir 500 mg tablet 1,000 mg PO DAILY PRN (Reason: prn) (DME) Custom Molded orthotics See Rx Instructions .Route .MEDSUPPLY Qty: 1 0RF Rx Instructions: As directed (DME) night splint See Rx Instructions .Route .MEDSUPPLY Qty: 1 0RF Rx Instructions: As directed metoprolol succinate 50 mg tablet extended release 24 hr 50 mg PO DAILY Qty: 14 5RF prednisone 10 mg tablets,dose pack 10 mg PO DAILY Qty: 42 0RF Rx Instructions: Provided patient with instructions diltiazem HCl 360 mg capsule,extended release 24 hr 360 mg PO DAILY Qty: 90 1RF aspirin 81 mg tablet,delayed release (DR/EC) 81 mg PO DAILY Qty: 30 0RF telmisartan 80 mg tablet 80 mg PO DAILY Qty: 30 0RF Plavix 75 mg tablet 75 mg PO DAILY Qty: 30 0RF Crestor 10 mg tablet 10 mg PO DAILY Qty: 30 0RF Discharge Orders: Discharge ED (Routine); Ordered 05/09/22 Ordered By: Wendy Cross Referrals: Marrero,MAURICE Malcolm [Primary Care Provider] - Coding Level of Care Code ED Marketing Proposal Specialist for Chg Fwd Exam Comprehensive Documented by User: Asher Madera DO 05/10/22 01:57 HPI - General Adult General: Chief complaint: Chest Pain Stated complaint: chest pain Time Seen by Provider: 05/09/22 19:06 PFSH ED PFSH: Medical History Anxiety Atypical chest pain Benign essential hypertension with target blood pressure below 140/90 Herpes simplex Hypertension IBS (irritable bowel syndrome) Palpitation Tachycardia Tendonitis of foot Surgical History Hx of appendectomy Hx of cholecystectomy Family History Other Cancer Diabetes Hyperlipidemia Hypertension Denies family history of CAD (coronary artery disease) Clotting disorder Dementia Chronic kidney disease (CKD) Anesthesia complication Bleeding disorder Stroke Social History Smoking and tobacco status: former smoker Alcohol intake: current Alcohol intake frequency: 3 or more drinks per day Physical Exam Neuro: KAI COMA SCALE: document GCS findings Kai coma scale total score: 15 Course Vital Signs: Vital signs: Vital Signs Temperature 98.1 F 05/09/22 16:05 Pulse Rate 70 05/09/22 20:32 Respiratory Rate 16 05/09/22 20:32 Blood Pressure 137/89 05/09/22 20:32 Pulse Oximetry 95 05/09/22 20:32 Oxygen Delivery Me thod 05/09/22 16:05 MDM - General Adult Medical Decision Making By patient's history he has had very extensive previous work-ups for his symptoms. Upon arrival blood pressure is 118/79 with a pulse of 89. He is completely asymptomatic during my assessment. ED evaluation here is essentially benign. 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 I recommend he follow-up with them. There is nothing emergent that needs to be completed from our end at this time. Return ED precautions given. This patient was originally seen by Mrs. Cross?TANESHA Jacobs.? I agree with her history, evaluation, and treatment. Lab Data 05/09/22 19:28 05/09/22 19: Radiology Impressions Chest X-Ray 05/09/22 18:36 IMPRESSION: No acute findings. Laboratory Results WBC 5.8 10^3/uL (4.0-10.0) 05/09/22: RBC 5.33 10^6/uL (4.1-5.3) H 05/09/22 19: Hgb 15.7 g/dL (11.7-16.6) 05/09/22: Hct 45.3 % (42.0-52.0) 05/09/22: MCV 85.0 fl (80-94) 05/09/22: MCH 29.5 pg (28.0-34.0) 05/09/22: MCHC 34.7 g/dL (30.0-36.0) 05/09/22: RDW 11.9 % (12.1-15.1) L 05/09/22: Plt Count 257 10^3/cmm (130-400) 05/09/22: MPV 10.4 fL (7.4-10.4) 05/09/22: Neut % (Auto) 62.0 % 05/09/22: Lymph % (Auto) 26.9 % 05/09/22: [place] % (Auto) 6.4 % 05/09/22: Eos % (Auto) 3.5 % 05/09/22: Baso % (Auto) 1.0 % 05/09/22: Neut # (Auto) 3.57 10^3/uL (1.8-7.7) 05/09/22: Lymph # (Auto) 1.6 10^3/uL (0.8-4.8) 05/09/22: [place] # (Auto) 0.4 10^3/uL (0.2-0.9) 05/09/22: Eos # (Auto) 0.2 10^3/uL (0.0-0.8) 05/09/22 19:28 Baso # (Auto) 0.1 10^3/uL (0.0-0.1) 05/09/22 19: Nucleated RBC % (auto) 0 % 05/09/22 19: Nucleated RBCs # 0.0 /100WBC 05/09/22 19:28 Sodium 138 mmol/L (136-145) 05/09/22 19:28 Potassium 3.0 mmol/L (3.5-5.1) L 05/09/22 19:28 Chloride 99 mmol/L (98-107) 05/09/22 19:28 Carbon Dioxide 27 mmol/L (22-29) 05/09/22 19:28 Anion Gap 15.0 (5-19) 05/09/22 19:28 BUN 7 mg/dL (6-20) 05/09/22 19:28 Creatinine 0.6 mg/dL (0.7-1.2) L 05/09/22 19:28 GFR Calculation 141.5 mL/min (90-130) H 05/09/22 19:28 Glucose 98 mg/dL (65-115) 05/09/22 19: Calculated Osmolality 284 mOsm/kg (285-295) L 05/09/22 19:28 Calcium 9.9 mg/dL (8.5-10.5) 05/09/22 19:28 Total Bilirubin 0.8 mg/dL (0.15-1.2) 05/09/22 19:28 AST 21 U/L (0-40) 05/09/22 19: ALT 47 U/L (0-41) H 05/09/22 19:28 Alkaline Phosphatase 85 U/L (40-130) 05/09/22 19:28 Troponin T Baseline 6 ng/L (0-15) 05/09/22 19:28 Total Protein 7.9 g/dL (6.6-8.7) 05/09/22 19:28 Albumin 4.9 g/dL (3.5-5.2) 05/09/22 19:28 Globulin 3.0 g/dL (1.3-4.6) 05/09/22 19:28 Discharge Plan Discharge Patient Disposition: Home Clinical Impression: Labile blood pressure Condition: Stable Prescriptions: No Action fexofenadine [Shahnaz Allergy] 180 mg tablet 180 mg PO DAILY lorazepam 0.5 mg tablet 0.5 mg PO DAILY PRN (Reason: Anxiety) valacyclovir 500 mg tablet 1,000 mg PO DAILY PRN (Reason: prn) (DME) Custom Molded orthotics See Rx Instructions .Route .MEDSUPPLY Qty: 1 0RF Rx Instructions: As directed (DME) night splint See Rx Instructions .Route .MEDSUPPLY Qty: 1 0RF Rx Instructions: As directed metoprolol succinate 50 mg tablet extended release 24 hr 50 mg PO DAILY Qty: 14 5RF prednisone 10 mg tablets,dose pack 10 mg PO DAILY Qty: 42 0RF Rx Instructions: Provided patient with instructions diltiazem HCl 360 mg capsule,extended release 24 hr 360 mg PO DAILY Qty: 90 1RF aspirin 81 mg tablet,delayed release (DR/EC) 81 mg PO DAILY Qty: 30 0RF telmisartan 80 mg tablet 80 mg PO DAILY Qty: 30 0RF Plavix 75 mg tablet 75 mg PO DAILY Qty: 30 0RF Crestor 10 mg tablet 10 mg PO DAILY Qty: 30 0RF Discharge Orders: Discharge ED (Routine); Ordered 05/09/22 Ordered By: Wendy Cross Referrals: Janes,MAURICE Malcolm [Primary Care Provider] - Coding Level of Care Code ED Marketing Proposal Specialist for Shukri Fwwinter Exam Comprehensive
[2022-05-09 19:42] LABS: Basophils # 0.1 10^3/uL (0.0-0.1); Eosinophils # 0.2 10^3/uL (0.0-0.8); Eosinophils % 3.5 %; Hematocrit 45.3 % (42.0-52.0); Hemoglobin 15.7 g/dL (11.7-16.6); Lymphocytes # 1.6 10^3/uL (0.8-4.8); Lymphocytes % 26.9 %; Mean Corpuscular HGB Conc 34.7 g/dL (30.0-36.0); Mean Corpuscular Hemoglobin 29.5 pg (28.0-34.0); Mean Platelet Volume 10.4 fL (7.4-10.4); Monocytes # 0.4 10^3/uL (0.2-0.9); Monocytes % 6.4 %; Neutrophils # 3.57 10^3/uL (1.8-7.7); Nucleated Red Blood Cells % 0 %; Platelet Count 257 10^3/cmm (130-400); Red Blood Count 5.33 10^6/uL (4.1-5.3); Red Cell Distribution Width 11.9 % (12.1-15.1); White Blood Count 5.8 10^3/uL (4.0-10.0)
[2022-05-09 20:02] LABS: Alanine Aminotransferase 47 U/L (0-41); Albumin Level 4.9 g/dL (3.5-5.2); Alkaline Phosphatase 85 U/L (40-130); Aspartate Amino Transferase 21 U/L (0-40); Blood Urea Nitrogen 7 mg/dL (6-20); Calcium 9.9 mg/dL (8.5-10.5); Carbon Dioxide 27 mmol/L (22-29); Chloride 99 mmol/L (98-107); Glomerular Filtration Rate 141.5 mL/min (90-130); Glucose 98 mg/dL (65-115); Osmolality Calculated 284 mOsm/kg (285-295); Sodium 138 mmol/L (136-145); Total Bilirubin 0.8 mg/dL (0.15-1.2); Total Protein 7.9 g/dL (6.6-8.7)
[2022-05-09 20:03] LABS: Troponin(5th) Baseline 6 ng/L (0-15)
[2022-05-09 20:32] VITALS: BP 137/89; PULSE 70; RESP 16; O2SAT 95
== END 2022-05-09 20:33 | disposition home or self-care (01) ==
PROVIDERS: Emergency Provider Physician Assistant; PCP Nurse Practitioner Family
DX: R09.89 Other specified symptoms and signs involving the circulatory and respiratory systems (principal); Z79.82 Long term (current) use of aspirin; Z79.02 Long term (current) use of antithrombotics/antiplatelets; I10 Essential (primary) hypertension; Z87.891 Personal history of nicotine dependence
CPT/HCPCS: 71045; 80053; 84484; 85025; 93005; 99285

== ENCOUNTER 2022-05-20 06:00 | Outpatient (RCR) | payer OTHER, SELFPAY | END 2022-05-31 23:59 | disposition home or self-care (01) | LOC: SPT 06:00 | PROVIDERS: PCP Nurse Practitioner Family; Visit Provider Podiatrist Foot & Ankle Surgery | DX: M72.2 Plantar fascial fibromatosis (principal) | CPT/HCPCS: 97033; 97035; 97140 ==

== ENCOUNTER 2022-08-05 06:35 | Outpatient (CLI) | payer OTHER, SELFPAY ==
--- NOTE | 2022-08-05 06:54 | NMCV_ITS ---
NM toñito perf SPECT r/s* [id number] Adam Claros Age: 52 Gender: M : 1970 Exam Date: 08/05/2022 07:40 Ordering Phys: Leonides Claros MD ([email or web address]) Technologist: ROSE Melendez Exam Location: [facility] Indications: CORONARY ANGIOPLASTY STATUS STRESS TEST Please see separate stress test report in [facility] for full findings IMAGE PROTOCOL Rest/Stress 1 Exercise Day Radiopharmaceutical Dose (mCi) Administration Site Administered by Rest: Tc-99m 10.9 IV ROSE Rangel Sestamibi Stress:Tc-99m 32.6 IV ROSE Rangel Sestamibi Rest: 05-Aug-2022 60 Discovery 630 Stress: 05-Aug-2022 30 Discovery 630 Radiopharmaceutical was injected at 89 % maximum heart rate. Images obtained in supine and prone position. SPECT RESULTS Technical Quality: Excellent Raw Data Analysis: Normal Image Corrections: No attenuation or motion correction applied Summed Stress Score: 0 Summed Rest Score: 4 Summed Difference Score: 0 PERFUSION FINDINGS Patchy areas of slightly decreased tracer uptake were noted in the anterior and inferior wall regions. No significant reversibility was noted in these regions. FUNCTIONAL RESULTS (calculated via Gated SPECT) Stress Image LV EF (%): 77 Stress EDV (mL):79 TID: 0.88 Stress ESV (mL):18 FUNCTIONAL FINDINGS: Segmental wall motion analysis revealing no gross wall motion abnormalities IMPRESSIONS 1. Myocardial perfusion imaging revealing patchy areas of persistent decreased tracer uptake were noted in the anterior wall and inferior wall regions with the supine imaging, suggesting myocardial scarring versus attenuation artifact. 2. Normal LV ejection fraction of 77%. 3. LV wall motion analysis revealing no gross wall motion abnormalities. 4. Normal LV volume Low probability for coronary ischemia, based on the above findings. No similar previous studies are available for comparison Dr Leonides Claros MD [facility] (Electronically Signed) Final Date: 05 August 2022 17:29 S
--- NOTE | 2022-08-05 06:54 | ECG_ITS ---
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 Interpretive Statements NAME OF STUDY: EXERCISE SESTAMIBI STRESS TEST INDICATION: Chest Pain, PROCEDURE: The baseline electrocardiogram showed normal sinus rhythm with normal ST-Ts. At the baseline, the patient's blood pressure was 198/98 mm Hg with a heart rate of 74. The patient exercised for 10 minutes and 16 seconds on a standard Cesar protocol. Patient attained a maximum heart rate of 155 beats per minute(92% of the maximum predicted heart rate) with a blood pressure at the peak exercise of 169/71 mm Hg. The EKG at the peak exercise revealed no significant changes. Patient did not have any chest pain or any significant arrhythmis with the exercise Sestamibi was injected 1 minute prior to the peak exercise During the recovery phase, there were no new changes. Blood pressure at the end of the recovery phase was 137/81 mm Hg with a heart rate of 96 per minute. CONCLUSION: 1. No significant EKG changes with the treadmill exercise 2. No exercise-induced chest pain or cardiac arrhythmia 3. Good exercise tolerance, attained a maximum of 13.5 METs 4. Sestamibi/Sestamibi perfusion results pending; see separate report. Electronically Signed On 08-09-2022 17:58:43 CDT by Leonides Claros M.D. [id number]
[2022-08-05 06:55] VITALS: BMI 31.6
[2022-08-05 09:16] VITALS: BP 137/81; PULSE 98
== END 2022-08-05 06:36 | disposition home or self-care (01) ==
LOC: CDL 06:36
PROVIDERS: PCP Nurse Practitioner Family; Visit Provider Internal Medicine Cardiovascular Disease
DX: R07.9 Chest pain, unspecified (principal)
CPT/HCPCS: 36415; 78452; 93017; 96374; A9500

== ENCOUNTER 2022-10-26 15:00 | Outpatient (CLI) | payer OTHER, SELFPAY | END 2022-10-26 15:01 | disposition home or self-care (01) | LOC: SLEEP 10-27 15:29 | PROVIDERS: PCP Nurse Practitioner Family; Visit Provider Nurse Practitioner Family | DX: G47.33 Obstructive sleep apnea (adult) (pediatric) (principal); G47.36 Sleep related hypoventilation in conditions classified elsewhere; R00.2 Palpitations; I47.29 Other ventricular tachycardia; R06.83 Snoring | CPT/HCPCS: G0399 ==

== ENCOUNTER 2022-10-27 14:07 | Outpatient (CLI) | payer OTHER, SELFPAY ==
--- NOTE | 2022-10-27 14:22 | CTR_ITS ---
PROCEDURE INFORMATION: Exam: CT Abdomen And Pelvis Without Contrast Exam date and time: 10/27/2022 2:28 PM Age: 52 years old Clinical indication: Condition or disease; Prior surgery; Surgery date: 6+ months; Surgery type: Gb, appy; Patient HX: Proximal hypertension, adrenal gland cyst; Additional info: Personal history of other diseases of urinary system TECHNIQUE: Imaging protocol: Computed tomography of the abdomen and pelvis without contrast. Radiation optimization: All CT scans at this facility use at least one of these dose optimization techniques: automated exposure control; mA and/or kV adjustment per patient size (includes targeted exams where dose is matched to clinical indication); or iterative reconstruction. REPORTING DATA: Count of CT and Cardiac NM exams in prior 12 months: This patient has received 3 known CTs and 0 known cardiac nuclear medicine studies in the 12 months prior to the current study. COMPARISON: abdomen limited [id number] 11/03/2019 9:05 AM RADIATION DOSE METRICS: Total DLP (mGy-cm): 731.79 FINDINGS: Lungs: Right lower lobe 5.9 mm pulmonary nodule incompletely visualized, dedicated chest CT advised for further evaluation. Liver: Hepatic steatosis. Gallbladder and bile ducts: Cholecystectomy. Pancreas: Normal. No ductal dilation. Spleen: Normal. No splenomegaly. Adrenal glands: Normal. No mass. Kidneys and ureters: Left kidney upper pole exophytic hyperdense lesion suggestive of a hemorrhagic cyst measuring 2.1 cm, further evaluation with ultrasound advised to assess for cystic versus solid nature. Left kidney interpolar region cyst. Bilateral right greater left perinephric edema likely reflecting renal insufficiency, please correlate for pyelonephritis. Stomach and bowel: Unremarkable. No obstruction. No mucosal thickening. Appendix: No evidence of appendicitis. Intraperitoneal space: Unremarkable. No free air. No significant fluid collection. Vasculature: Unremarkable. No abdominal aortic aneurysm. Lymph nodes: Unremarkable. No enlarged lymph nodes. Urinary bladder: Unremarkable as visualized. Reproductive: Unremarkable as visualized. Bones/joints: Unremarkable. No acute fracture. Soft tissues: Umbilical hernia containing omentum without bowel. Moderate right and small left inguinal hernias containing omentum without bowel. CT/CT abdomen pelvis wo con [id number] IMPRESSION: 1. Right lower lobe 5.9 mm pulmonary nodule incompletely visualized, dedicated chest CT advised for further evaluation. 2. Hepatic steatosis. 3. Cholecystectomy. 4. Left kidney upper pole exophytic hyperdense lesion suggestive of a hemorrhagic cyst measuring 2.1 cm, further evaluation with ultrasound advised to assess for cystic versus solid nature. 5. Left kidney interpolar region cyst. 6. Bilateral right greater left perinephric edema likely reflecting renal insufficiency, please correlate for pyelonephritis. 7. Umbilical hernia containing omentum without bowel. 8. Moderate right and small left inguinal hernias containing omentum without bowel. COMMENTS: Consistent with the [employer]'s Incidental Findings Committee white paper (J Am Aquiles Radiol 2018): Any incidental renal lesion less than 1 cm or classified as too small to characterize, or any incidental cystic renal lesion characterized as simple-appearing, is likely benign. No follow-up imaging is recommended for these lesions per consensus recommendations based on imaging criteria.
== END 2022-10-27 14:08 | disposition home or self-care (01) ==
PROVIDERS: PCP Nurse Practitioner Family; Visit Provider Nurse Practitioner Family
DX: Z87.448 Personal history of other diseases of urinary system (principal); R91.1 Solitary pulmonary nodule; K76.0 Fatty (change of) liver, not elsewhere classified; Z90.49 Acquired absence of other specified parts of digestive tract; N28.9 Disorder of kidney and ureter, unspecified; N28.1 Cyst of kidney, acquired; K42.9 Umbilical hernia without obstruction or gangrene
CPT/HCPCS: 74176

== ENCOUNTER 2022-11-05 17:54 | Emergency (ER) | payer OTHER, SELFPAY ==
[2022-11-05 17:55] VITALS: BP 130/93; PULSE 90; RESP 16; O2SAT 97
--- NOTE | 2022-11-05 18:04 | ECG_ITS ---
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 Measurements Intervals [place] Rate: 85 P: 27 DE: 147 QRS: 2 QRSD: 110 T: 28 QT: 375 QTc: 447 Interpretive Statements SINUS RHYTHM Compared to ECG 05/09/2022 16:07:43 No significant changes Electronically Signed On 11-05-2022 22:42:37 CDT by Haydee Morgan M.D. [id number]
--- NOTE | 2022-11-05 18:16 | XRR_ITS ---
PROCEDURE INFORMATION: Exam: XR Chest Exam date and time: 11/05/2022 6:21 PM Age: 52 years old Clinical indication: Pain; Chest pressure; Additional info: Cp TECHNIQUE: Imaging protocol: Radiologic exam of the chest. Views: 1 view. COMPARISON: CR XR chest 1V portable [id number] 05/09/2022 7:23 PM FINDINGS: Lungs: Unremarkable. No consolidation. Pleural spaces: Unremarkable. No pleural effusion. No pneumothorax. Heart/Mediastinum: Unremarkable. No cardiomegaly. Bones/joints: Unremarkable. XR/XR chest 1V portable [id number] IMPRESSION: No acute findings.
--- NOTE | 2022-11-05 18:27 | W.ED.CHESTPA ---
HPI - Chest Pain General: Chief Complaint: Chest Pain Stated Complaint: chest pain and headache 4xdays Time Seen by Provider: 11/05/22 18:16 Source: patient Mode of arrival: ambulatory Limitations: no limitations History of Present Illness: 52-year-old male states he has been having chest pain with headache over the last 4 days. He states he has been dealing this for years he states has been having chest pain for years has had multiple studies states he has had stress test angiogram everything is came out negative states it is a pressure type pain its been constant nature he denies any worsening proving factors denies any shortness of breath. Associated symptoms: Deny abdominal pain, dyspnea, fever(s), nausea or vomiting Review of Systems Const: Denies: fever(s), chills, body aches or change in appetite Eyes: Denies: blurry vision or eye discomfort ENMT: Denies: throat pain or dental pain Card: Reports: chest pain Resp: Denies: dyspnea GI: Denies: abdominal pain, nausea, vomiting or diarrhea Musc: Denies: neck pain or back pain Skin/Breast: Denies: rash Neuro: Reports: headache(s) PFSH ED PFSH: Medical History (Updated 11/05/22 @ 19:14 by Anna Mancilla MD) Anxiety Atypical chest pain Benign essential hypertension with target blood pressure below 140/90 Herpes simplex Hypertension IBS (irritable bowel syndrome) Palpitation Tachycardia Tendonitis of foot Surgical History Hx of appendectomy Hx of cholecystectomy Family History Other Cancer Diabetes Hyperlipidemia Hypertension Denies family history of CAD (coronary artery disease) Clotting disorder Dementia Chronic kidney disease (CKD) Anesthesia complication Bleeding disorder Stroke Social History Smoking and tobacco status: former smoker Alcohol intake: current Alcohol intake frequency: 3 or more drinks per day Substance/Drug Use: never Physical Exam Const: COMMON NORMALS: no acute distress, patient oriented x3 and healthy appearing HENMT: COMMON NORMALS: normocephalic and atraumatic HEAD & SCALP: normocephalic and atraumatic Eye: COMMON NORMALS: Equal, round and reactive pupils present and EOMs intact bilaterally PUPIL: Yes Equal, round and reactive pupils present Neck/C-Spine: COMMON NORMALS: full ROM and supple Chest: COMMONS NORMALS: normal inspection of the chest and normal palpation of entire chest wall Resp: COMMON NORMALS: normal respiratory effort, No retractions, No use of accessory muscles and clear to auscultation bilaterally AUSCULTATION: clear to auscultation bilaterally Cardio: COMMON NORMALS: regular rate, regular rhythm and No murmurs present (Cardio) RATE: regular rate RHYTHM: regular rhythm GI: COMMON NORMALS: Normal to inspection, nondistended, normoactive bowel sounds present, Soft to palpation, non-tender and no masses PALPATION: Yes Soft to palpation Extremity: COMMON NORMALS: normal to inspection and full ROM Neuro: COMMON NORMALS: patient oriented x3, moves all extremities and no focal motor deficits Psych: COMMON NORMALS: mental status grossly normal, Normal thought process present and cooperative THOUGHT PROCESS: Normal thought process present Skin: COMMON NORMALS: no rashes or lesions noted and no wounds GENERAL SKIN EXAM: no rashes or lesions noted Course Vital Signs: Vital signs: Vital Signs Pulse Rate 90 11/05/22 17:55 Respiratory Rate 16 11/05/22 17:55 Blood Pressure 130/93 11/05/22 17:55 Pulse Oximetry 97 11/05/22 17:55 Oxygen Delivery Me thod Room Air 11/05/22 17:55 MDM - Chest Pain Medical Decision Making Patient presents here with chest pains atypical in nature his initial troponin here is normal does not need a 2-hour troponin his pain has been for days. 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 Lab Data I reviewed the patient's lab results. 11/05/22 18:21 11/05/22 18:21 Radiology Impressions Chest X-Ray 11/05/22 18:16 IMPRESSION: No acute findings. Laboratory Results WBC 5.8 10^3/uL (4.0-10.0) 11/05/22 18:21 RBC 5.15 10^6/uL (4.1-5.3) 11/05/22 18:21 Hgb 15.1 g/dL (11.7-16.6) 11/05/22 18:21 Hct 43.7 % (42.0-52.0) 11/05/22 18:21 MCV 84.9 fl (80-94) 11/05/22 18:21 MCH 29.3 pg (28.0-34.0) 11/05/22 18:21 MCHC 34.6 g/dL (30.0-36.0) 11/05/22 18:21 RDW 12.4 % (12.1-15.1) 11/05/22 18:21 Plt Count 256 10^3/cmm (130-400) 11/05/22 18:21 MPV 10.6 fL (7.4-10.4) H 11/05/22 18:21 Neut % (Auto) 62.9 % 11/05/22 18:21 Lymph % (Auto) 24.3 % 11/05/22 18:21 [place] % (Auto) 8.3 % 11/05/22 18:21 Eos % (Auto) 3.6 % 11/05/22 18:21 Baso % (Auto) 0.7 % 11/05/22 18:21 Neut # (Auto) 3.65 10^3/uL (1.8-7.7) 11/05/22 18:21 Lymph # (Auto) 1.4 10^3/uL (0.8-4.8) 11/05/22 18:21 [place] # (Auto) 0.5 10^3/uL (0.2-0.9) 11/05/22 18:21 Eos # (Auto) 0.2 10^3/uL (0.0-0.8) 11/05/22 18:21 Baso # (Auto) 0.0 10^3/uL (0.0-0.1) 11/05/22 18:21 Nucleated RBC % (auto) 0 % 11/05/22 18: Nucleated RBCs # 0.0 /100WBC 11/05/22 18:21 PT 12.80 SECONDS (12.1-14.9) 11/05/22 18:21 INR 0.94 (0.8-1.2) 11/05/22 18:21 Sodium 139 mmol/L (136-145) 11/05/22 18:21 Potassium 3.4 mmol/L (3.5-5.1) L 11/05/22 18:21 Chloride 102 mmol/L (98-107) 11/05/22 18:21 Carbon Dioxide 24 mmol/L (22-29) 11/05/22 18:21 Anion Gap 16.4 (5-19) 11/05/22 18:21 BUN 9 mg/dL (6-20) 11/05/22 18:21 Creatinine 0.7 mg/dL (0.7-1.2) 11/05/22 18:21 GFR Calculation 118.0 mL/min (90-130) 11/05/22 18:21 Glucose 92 mg/dL (65-115) 11/05/22 18:21 Calculated Osmolality 286 mOsm/kg (285-295) 11/05/22 18:21 Calcium 9.8 mg/dL (8.5-10.5) 11/05/22 18:21 Total Bilirubin 1.0 mg/dL (0.15-1.2) 11/05/22 18:21 AST 14 U/L (0-40) 11/05/22 18:21 ALT 26 U/L (0-41) 11/05/22 18:21 Alkaline Phosphatase 70 U/L (40-130) 11/05/22 18:21 Troponin T Baseline 7 ng/L (0-15) 11/05/22 18:21 Total Protein 6.7 g/dL (6.6-8.7) 11/05/22 18:21 Albumin 4.7 g/dL (3.5-5.2) 11/05/22 18:21 Globulin 2.0 g/dL (1.3-4.6) 11/05/22 18:21 EKG Data EKG 1: I personally reviewed and interpreted this EKG as follows: EKG interpretation date: 11/05/22 EKG interpretation time: 18:04 Interpretation: nsr hr [address] or t wave abnormalities qrs 110 qtc 417 Discharge Plan Discharge Patient Disposition: Home Clinical Impression: Chest pain Condition: Stable Prescriptions: No Action fexofenadine [Shahnaz Allergy] 180 mg tablet 180 mg PO DAILY lorazepam 0.5 mg tablet 0.5 mg PO DAILY PRN (Reason: Anxiety) valacyclovir 500 mg tablet 1,000 mg PO DAILY PRN (Reason: prn) (DME) Custom Molded orthotics See Rx Instructions .Route .MEDSUPPLY Qty: 1 0RF Rx Instructions: As directed (DME) night splint See Rx Instructions .Route .MEDSUPPLY Qty: 1 0RF Rx Instructions: As directed metoprolol succinate 50 mg tablet extended release 24 hr 50 mg PO DAILY Qty: 14 5RF (DME) co-poly custom insoles See Rx Instructions .Route .MEDSUPPLY Qty: 1 0RF Rx Instructions: As directed by ABHIJEET&O magnesium 250 mg tablet 250 mg PO DAILY Qty: 90 3RF aspirin 81 mg tablet,delayed release (DR/EC) 81 mg PO DAILY Qty: 30 0RF telmisartan 80 mg tablet 80 mg PO DAILY Qty: 30 0RF Plavix 75 mg tablet 75 mg PO DAILY Qty: 30 0RF Hold Instructions: Doctor's Order Crestor 10 mg tablet 10 mg PO DAILY Qty: 30 0RF Hold Instructions: Doctor's Order Discharge Orders: Discharge ED (Routine); Ordered 11/05/22 Ordered By: Anna Mancilla Referrals: Yun Marrero FNP [Primary Care Provider] - Discharge Diet: Advance as tolerated Discharge Activity: Resume usual activity Patient Instructions: Chest Pain (ED) Coding Level of Care Code ED Casting Wheel 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
[2022-11-05 18:42] LABS: Basophils % 0.7 %; Eosinophils # 0.2 10^3/uL (0.0-0.8); Eosinophils % 3.6 %; Hematocrit 43.7 % (42.0-52.0); Hemoglobin 15.1 g/dL (11.7-16.6); Lymphocytes # 1.4 10^3/uL (0.8-4.8); Lymphocytes % 24.3 %; Mean Corpuscular HGB Conc 34.6 g/dL (30.0-36.0); Mean Corpuscular Hemoglobin 29.3 pg (28.0-34.0); Mean Corpuscular Volume 84.9 fl (80-94); Mean Platelet Volume 10.6 fL (7.4-10.4); Monocytes # 0.5 10^3/uL (0.2-0.9); Monocytes % 8.3 %; Neutrophils # 3.65 10^3/uL (1.8-7.7); Neutrophils % 62.9 %; Nucleated Red Blood Cells % 0 %; Platelet Count 256 10^3/cmm (130-400); Red Blood Count 5.15 10^6/uL (4.1-5.3); Red Cell Distribution Width 12.4 % (12.1-15.1); White Blood Count 5.8 10^3/uL (4.0-10.0)
[2022-11-05 18:56] LABS: INR 0.94 (0.8-1.2)
[2022-11-05 19:03] LABS: Troponin(5th) Baseline 7 ng/L (0-15)
[2022-11-05 19:05] LABS: Alanine Aminotransferase 26 U/L (0-41); Albumin Level 4.7 g/dL (3.5-5.2); Alkaline Phosphatase 70 U/L (40-130); Anion Gap 16.4 (5-19); Aspartate Amino Transferase 14 U/L (0-40); Blood Urea Nitrogen 9 mg/dL (6-20); Calcium 9.8 mg/dL (8.5-10.5); Carbon Dioxide 24 mmol/L (22-29); Chloride 102 mmol/L (98-107); Glucose 92 mg/dL (65-115); Osmolality Calculated 286 mOsm/kg (285-295); Potassium 3.4 mmol/L (3.5-5.1); Sodium 139 mmol/L (136-145); Total Protein 6.7 g/dL (6.6-8.7)
[2022-11-05 19:56] VITALS: BP 130/93; PULSE 90; RESP 16; O2SAT 97
--- NOTE | 2022-11-06 10:34 | DCPLANNER ---
Addendum entered by Michell Baer 11/12/22 07:27: Patient had a follow up appointment scheduled with heart care - patient did attend appointment Addendum entered by Michell Baer 11/06/22 13:06: Patient has a follow up appointment scheduled for Thursday, November 10, 2022 at 2:15 with Laura Huynh at [facility]. Original Note: manager non profit had message to schedule a follow up appointment for patient with cardiology. manager non profit sent patients information to the front office staff at [facility]. Patients information will be printed and reviewed. Clinic will call patient with appointment information
== END 2022-11-05 19:56 | disposition home or self-care (01) ==
PROVIDERS: Emergency Provider Emergency Medicine; PCP Nurse Practitioner Family
DX: R07.9 Chest pain, unspecified (principal); Z79.82 Long term (current) use of aspirin; Z79.02 Long term (current) use of antithrombotics/antiplatelets; Z87.891 Personal history of nicotine dependence; I10 Essential (primary) hypertension
CPT/HCPCS: 36415; 71045; 80053; 84484; 85025; 85610; 93005; 99285

== ENCOUNTER 2022-11-19 07:40 | Outpatient (CLI) | payer OTHER, SELFPAY ==
--- NOTE | 2022-11-19 07:56 | US_ITS ---
WS: [id number] RENAL ULTRASOUND HISTORY: CYST OF KIDNEY COMPARISON: CT 10/27/2022 TECHNIQUE: 2-D and color Doppler imaging of the kidney submitted. Right kidney: 11.1 cm x 5.7 cm x 5.3 cm. Cortex: 1.8 cm Normal echogenicity with no hydronephrosis or mass. Left kidney: 12.1 cm x 6.8 cm x 6.1 cm. Cortex: 1.6 cm Normal size kidney. No hydronephrosis or solid mass. Cyst in the interpolar region measures 3.3 x 3.4 x 3.2 cm and has been previously described. No solid component. Aorta: Normal. Urinary Bladder: Well-distended urinary bladder. No intraluminal filling defect. Enlarged mildly heterogeneous prostate. US/US renal BI* [id number] IMPRESSION: 1. No hydronephrosis or solid renal mass. 2. Simple cyst interpolar region LEFT kidney measuring 3.3 x 3.4 x 3.2 cm. Sta ble since 10/27/2022.
--- NOTE | 2022-11-19 07:56 | CT_ITS ---
WS: [id number] CT chest wo con [id number] HISTORY: SOLITARY PULMONARY NODULE TECHNIQUE: Axial imaging performed through the thorax. Coronal and sagittal reformats are submitted. All CT scans at [facility] use at least one of these dose optimization techniques: automated exposure control; mA and/or kV adjustment per patient size (includes targeted exams where dose is mat ched to clinical indication); or iterative reconstruction. CONTRAST: None DLP: 326.66 mGy.cm COMPARISON: CT abdomen 10/27/2022. Lungs and central airway: Lungs are well-aerated. There are several subcentimeter noncalcified pulmon charis nodules identified throughout both lungs. The largest nodules measure approximately 5 mm. 5 mm no ncalcified nodule in the posterior RIGHT upper lobe. Additional 5 mm nodule RIGHT lower lobe. There a re additional scattered nodules which are smaller size. Perifissural nodule along the LEFT at 3 mm. N o pneumonia. Pleura: Normal. No pleural effusion. Heart and pericardium: Normal size heart with no pericardial effusion. Mediastinum and mike: No mediastinum or hilar adenopathy. Vessels: Normal size aortic and pulmonary artery. Minimal coronary artery calcifications. Chest wall and lower neck: No soft tissue masses. Upper abdomen: Small hiatal hernia. Well-circumscribed mass of increased density from the medial uppe r pole LEFT kidney. Osseous structures: No destructive process. CT/CT chest wo con [id number] IMPRESSION: 1. Multiple, subcentimeter and noncalcified pulmonary nodules. Largest nodules are 5 mm. Recommend follow-up chest CT in 6 months. Long-term surveillance nec essary to exclude enlarging pulmonary nodules. 2. Very mild coronary artery atherosclerosis. 3. High density mass superior pole LEFT kidney was previously described on 10/17. Please see ultrasound report from 11/19/2022.
== END 2022-11-19 07:41 | disposition home or self-care (01) ==
PROVIDERS: PCP Nurse Practitioner Family; Visit Provider Nurse Practitioner Family
DX: N28.1 Cyst of kidney, acquired (principal)
CPT/HCPCS: 71250; 76770

== ENCOUNTER 2023-01-05 15:13 | Outpatient (CLI) | payer OTHER, SELFPAY ==
--- NOTE | 2023-01-05 15:47 | MR_ITS ---
WS: [id number] MRI ABDOMEN WITH AND WITHOUT CONTRAST. COMPARISON: Renal ultrasound 11/19/2022, prior noncontrast CT abdomen 10/27/2022 Multiplanar, multisequence imaging is performed with and without contrast. MultiHance 20 mL IV. Kidneys are equal and normal in size. No hydronephrosis. There is few very tiny cortical cyst within the RIGHT kidney. The largest measures 5.8 mm. No solid mass or abnormality. Identified is the indeterminate cyst described by CT involving the upper medial pole of the LEFT kidn ey. This mass measures 2.0 x 1.9 cm. This mass is of increased signal on the T1 sequences and interme diate on the fast spin echo sequence and does not completely lose signal on the out of phase imaging. On the postcontrast imaging there is no obvious enhancement. On the postcontrast imaging this renal mass is of intermediate increased signal. There is an additional cyst in the mid LEFT kidney measurin g 3.6 x 3.3 cm. There is no enhancement. No pleural effusions. No ascites. Liver and spleen are normal size. Mild diffuse hepatic steatosis. P rior cholecystectomy. No bile duct dilatation. Normal pancreas. Normal adrenal glands. IMPRESSION: 1. No enhancement involving the mass in the medial upper pole LEFT kidney which has been previously d escribed. This is most typical for a complex cyst. Suggest 6-month follow-up to demonstrate long-term stability. Consider MRI follow-up with contrast in 6 months. 2. Benign LEFT renal cyst. 3. Prior cholecystectomy.
[2023-01-05] MEDS: gadobenate dimeglumine 20 mL vial IV (16:49)
== END 2023-01-05 15:14 | disposition home or self-care (01) ==
PROVIDERS: PCP Nurse Practitioner Family; Visit Provider Nurse Practitioner Family
DX: N28.9 Disorder of kidney and ureter, unspecified (principal); Z90.49 Acquired absence of other specified parts of digestive tract; N28.1 Cyst of kidney, acquired
CPT/HCPCS: 74183; A9577

== ENCOUNTER 2023-05-05 10:08 | Outpatient (CLI) | payer OTHER, SELFPAY ==
--- NOTE | 2023-05-05 10:11 | US_ITS ---
WS: [id number] ULTRASOUND SOFT TISSUES RIGHT antecubital fossa. HISTORY: LOCALIZED SWELLING,MASS LUMP, R UPPER LIMB COMPARISON: None available. TECHNIQUE: 2-D and color Doppler imaging is submitted. No soft tissue abnormalities noted at the antecubital fossa. No mass and no thrombus in the vein. IMPRESSION: Negative ultrasound RIGHT antecubital space.
== END 2023-05-05 10:09 | disposition home or self-care (01) ==
LOC: RAD 10:08
PROVIDERS: PCP Nurse Practitioner Family; Visit Provider Nurse Practitioner Family
DX: R22.31 Localized swelling, mass and lump, right upper limb (principal)
CPT/HCPCS: 76882

== ENCOUNTER 2023-05-14 19:47 | Emergency (ER) | payer OTHER, SELFPAY ==
[2023-05-14 19:54] VITALS: BP 170/107; PULSE 103; RESP 16; TEMP 36.8; O2SAT 96
--- NOTE | 2023-05-14 20:24 | XRR_ITS ---
PROCEDURE INFORMATION: Exam: XR Chest Exam date and time: 05/14/2023 8:31 PM Age: 52 years old Clinical indication: Chest wall pain; Additional info: Cxp TECHNIQUE: Imaging protocol: Radiologic exam of the chest. Views: 1 view. COMPARISON: CT chest con [id number] 11/19/2022 8:16 AM FINDINGS: Lungs: Lungs are clear bilaterally. Pleural spaces: No pleural effusion. No pneumothorax. Heart/Mediastinum: Stable mild enlargement of the cardiac silhouette. Mediastinal contours are unremarkable. Bones/joints: Unremarkable for age. XR/XR chest 1V portable [id number] IMPRESSION: 1. No acute cardiopulmonary process. 2. Incidental/nonacute findings are listed in the report.
--- NOTE | 2023-05-14 20:25 | ECG_ITS ---
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 Measurements Intervals [place] Rate: 76 P: 39 MD: 145 QRS: 48 QRSD: 114 T: 28 QT: 383 QTc: 433 Interpretive Statements SINUS RHYTHM WITH SINUS ARRHYTHMIA MODERATE INTRAVENTRICULAR CONDUCTION DELAY [110+ ms QRS DURATION] Compared to ECG 11/05/2022 18:04:25 Intraventricular conduction delay now present Electronically Signed On 05-14-2023 21:47:17 BOWLING BALL GRADER AND MARKER by Leander Jean M.D. [id number]
[2023-05-14 20:33] VITALS: BP 133/90; PULSE 103; RESP 16; O2SAT 96
[2023-05-14 20:37] LABS: Basophils # 0.1 10^3/uL (0.0-0.1); Basophils % 0.9 %; Eosinophils # 0.2 10^3/uL (0.0-0.8); Eosinophils % 3.8 %; Hematocrit 43.5 % (37-53); Lymphocytes # 1.6 10^3/uL (0.8-4.8); Lymphocytes % 29.9 %; Mean Corpuscular HGB Conc 35.2 g/dL (30-55); Mean Corpuscular Hemoglobin 29.7 pg (27-33); Mean Corpuscular Volume 84.5 fl (82-101); Mean Platelet Volume 10.3 fL (7.4-10.4); Monocytes # 0.4 10^3/uL (0.2-0.9); Monocytes % 7.1 %; Neutrophils # 3.09 10^3/uL (1.8-7.7); Neutrophils % 58.1 %; Nucleated Red Blood Cells % 0 %; Platelet Count 242 10^3/cmm (157-399); Red Blood Count 5.15 10^6/uL (3.85-5.65); White Blood Count 5.32 10^3/uL (3.29-11.43)
[2023-05-14 20:48] LABS: INR 1.01 (0.8-1.2)
[2023-05-14 21:00] LABS: Troponin(5th) Baseline 7 ng/L (0-15)
[2023-05-14 21:07] LABS: Alanine Aminotransferase 34 U/L (0-41); Albumin Level 4.8 g/dL (3.5-5.2); Alkaline Phosphatase 71 U/L (40-130); Anion Gap 18.4 (5-19); Aspartate Amino Transferase 21 U/L (0-40); Blood Urea Nitrogen 11 mg/dL (6-20); Calcium 10.2 mg/dL (8.5-10.5); Carbon Dioxide 25 mmol/L (22-29); Chloride 101 mmol/L (98-107); Globulin 2.3 g/dL (1.3-4.6); Glucose 105 mg/dL (65-115); NT Pro B Type Natriuretic Pept < 36 pg/mL (0-125); Osmolality Calculated 292 mOsm/kg (285-295); Potassium 3.4 mmol/L (3.5-5.1); Sodium 141 mmol/L (136-145); Total Bilirubin 0.7 mg/dL (0.15-1.2); Total Protein 7.1 g/dL (6.6-8.7)
--- NOTE | 2023-05-14 21:20 | W.ED.CHESTPA ---
HPI - Chest Pain General: Chief Complaint: Chest Pain Stated Complaint: 157/101 headache chest pain Time Seen by Provider: 05/14/23 20:24 History of Present Illness: 52-year-old male presents emergency department with complaints of feeling like he is having right-sided chest wall pain that started approximately 1530 today. He states the pain was a 3 out of 10 at that time he states it does not radiate and has since resolved. He states he did take his blood pressure medicine at the same time he noticed his chest pain he also noticed that his blood pressure was elevated. He states he has been evaluated by cardiology both in [place] and here at this hospital and they have not found any significant cardiac findings. Patient now states he is chest pain-free denies nausea, vomiting shortness of breath dizziness lightheaded feeling or diaphoresis. Review of Systems General: Reports: 10 or more systems reviewed and unremarkable except in HPI and below Card: Reports: chest pain [facility] ED PFSH: Medical History (Updated 05/14/23 @ 21:23 by Rupert Morataya MD) Atypical chest pain Tachycardia Benign essential hypertension with target blood pressure below 140/90 Palpitation Herpes simplex Anxiety Hypertension IBS (irritable bowel syndrome) Tendonitis of foot Surgical History Hx of cholecystectomy Hx of appendectomy Family History Other Cancer Diabetes Hyperlipidemia Hypertension Denies family history of CAD (coronary artery disease) Clotting disorder Dementia Chronic kidney disease (CKD) Anesthesia complication Bleeding disorder Stroke Social History Smoking and tobacco/nicotine status: former use of tobacco/nicotine Alcohol intake: current Alcohol intake frequency: 3 or more drinks per day Substance/Drug Use: never Physical Exam Narrative: EXAM NARRATIVE: Constitutional: the patient appears well nourished and of normal development. Vital signs as documented. No acute distress at present. Alert and oriented-to person, place, time and situation. Head, eyes, ears, nose, mouth, throat: Normocephalic, atraumatic. Pupils-equal, round, reactive to light. No scleral icterus. Normal-appearing external ears. Normal appearing nasal turbinates, no drainage. No obvious oral lesions, posterior oropharynx without erythema or exudates. Neck: Supple, trachea is midline, no lymphadenopathy, no jugular venous distension, thyromegaly, or carotid bruits. Carotid upstrokes are brisk bilaterally. Lungs: clear to auscultation to all lung landis. Symmetrical rise and fall of chest, no obvious signs of increased work of breathing at present. Cardiac: Regular rate and rhythm, positive S1, S2. No murmurs, rubs or gallops that I can appreciate Abdomen: Soft, non-tender to palpation, normal active bowel sounds to all quadrants. No palpable masses, no organomegaly and abdominal bruits. Extremities: 2+ pulses in the upper extremities that are equal bilaterally, 2+ pulses in the lower extremities that are equal bilaterally. Non-edematous. Moves all extremities well, sensation to all extremities are noted. Skin: Warm, dry, intact. Course Vital Signs: Vital signs: Vital Signs Temperature 98.2 F 05/14/23 19:54 Pulse Rate 78 05/14/23 21:23 Respiratory Rate 16 05/14/23 20:33 Blood Pressure 111/76 05/14/23 21:23 Pulse Oximetry 96 05/14/23 21:23 Oxygen Delivery Me thod Room Air 05/14/23 21:23 MDM - Chest Pain Medical Decision Making 52-year-old male presents with a history of hypertension high cholesterol previously on Plavix. States that he had elevated blood pressure today as well as right-sided chest discomfort we will provide serial twelve-lead EKGs, cardiac enzymes, CBC, CMP and chest x-ray to evaluate. Medical Records I reviewed the patient's medical records. Lab Data I reviewed the patient's lab results. 05/14/23 20:28 05/14/23 20:28 Radiology Impressions Chest X-Ray 05/14/23: IMPRESSION: 1. No acute cardiopulmonary process. 2. Incidental/nonacute findings are listed in the report. Laboratory Results WBC 5.32 10^3/uL (3.29-11.43) 05/14/23 20: RBC 5.15 10^6/uL (3.85-5.65) 05/14/23 20: Hgb 15.30 g/dL (11.27-16.99) 05/14/23 20: Hct 43.5 % (37-53) 05/14/23 20: MCV 84.5 fl (82-101) 05/14/23 20: MCH 29.7 pg (27-33) 05/14/23: MCHC 35.2 g/dL (30-55) 05/14/23 20: RDW 12.0 % (12.1-15.1) L 05/14/23 20: Plt Count 242 10^3/cmm (157-399) 05/14/23: MPV 10.3 fL (7.4-10.4) 05/14/23 20: Neut % (Auto) 58.1 % 05/14/23: Lymph % (Auto) 29.9 % 05/14/23: [place] % (Auto) 7.1 % 05/14/23: Eos % (Auto) 3.8 % 05/14/23: Baso % (Auto) 0.9 % 05/14/23 Neut # (Auto) 3.09 10^3/uL (1.8-7.7) 05/14/23: Lymph # (Auto) 1.6 10^3/uL (0.8-4.8) 05/14/23: [place] # (Auto) 0.4 10^3/uL (0.2-0.9) 05/14/23: Eos # (Auto) 0.2 10^3/uL (0.0-0.8) 05/14/23: Baso # (Auto) 0.1 10^3/uL (0.0-0.1) 05/14/23: Nucleated RBC % (auto) 0 % 05/14/23 Nucleated RBCs # 0.0 /100WBC 05/14/23: PT 13.60 SECONDS (12.1-14.9) 05/14/23: INR 1.01 (0.8-1.2) 05/14/23 20: Sodium 141 mmol/L (136-145) 05/14/23 20: Potassium 3.4 mmol/L (3.5-5.1) L 05/14/23: Chloride 101 mmol/L (98-107) 05/14/23 20:28 Carbon Dioxide 25 mmol/L (22-29) 05/14/23 20:28 Anion Gap 18.4 (5-19) 05/14/23 20: BUN 11 mg/dL (6-20) 05/14/23 20: Creatinine 0.7 mg/dL (0.7-1.2) 05/14/23 20: GFR Calculation 118.0 mL/min (90-130) 05/14/23 20: Glucose 105 mg/dL (65-115) 05/14/23 20: Calculated Osmolality 292 mOsm/kg (285-295) 05/14/23 20: Calcium 10.2 mg/dL (8.5-10.5) 05/14/23 20: Total Bilirubin 0.7 mg/dL (0.15-1.2) 05/14/23 20: AST 21 U/L (0-40) 05/14/23 20: ALT 34 U/L (0-41) 05/14/23 20: Alkaline Phosphatase 71 U/L (40-130) 05/14/23 20: Troponin T Baseline 7 ng/L (0-15) 05/14/23 20: NT-Pro-B Natriuret Pep < 36 pg/mL (0-125) 05/14/23 20: Total Protein 7.1 g/dL (6.6-8.7) 05/14/23 20: Albumin 4.8 g/dL (3.5-5.2) 05/14/23 20: Globulin 2.3 g/dL (1.3-4.6) 05/14/23 20:28 All radiology interpretation(s) finalized by discharge EKG Data EKG 1: Interpretation: Twelve-lead EKG obtained at 1950 and reviewed at 1950 demonstrates sinus rhythm with a ventricular rate of 99 bpm, MT interval 150, QRS duration 108, QT 354 QTc 410 at present there is no ST elevation or depression to demonstrate acute ischemia or infarction. EKG 2: Interpretation: Twelve-lead EKG obtained at 2039 reviewed at 2039 demonstrates underlying sinus rhythm with sinus arrhythmia, ventricular rate of 76 bpm, MT interval 145, QRS duration 114, QT 383, QTc 414 at present there is no ST elevation or depression to demonstrate acute ischemia or infarction Discharge Plan Discharge Patient Disposition: Home Clinical Impression: Atypical chest pain Condition: Stable Prescriptions: No Action fexofenadine [Shahnaz Allergy] 180 mg tablet 180 mg PO DAILY lorazepam 0.5 mg tablet 0.5 mg PO DAILY PRN (Reason: Anxiety) valacyclovir 500 mg tablet 1,000 mg PO DAILY PRN (Reason: prn) (DME) Custom Molded orthotics See Rx Instructions .Route .MEDSUPPLY Qty: 1 0RF Rx Instructions: As directed (DME) night splint See Rx Instructions .Route .MEDSUPPLY Qty: 1 0RF Rx Instructions: As directed metoprolol succinate 50 mg tablet extended release 24 hr 50 mg PO DAILY Qty: 14 5RF (DME) co-poly custom insoles See Rx Instructions .Route .MEDSUPPLY Qty: 1 0RF Rx Instructions: As directed by ABHIJEET&O gabapentin 100 mg capsule 100 mg PO TID magnesium 250 mg tablet 250 mg PO DAILY Qty: 90 3RF aspirin 81 mg tablet,delayed release (DR/EC) 81 mg PO DAILY Qty: 30 0RF telmisartan 80 mg tablet 80 mg PO DAILY Qty: 30 0RF Plavix 75 mg tablet 75 mg PO DAILY Qty: 30 0RF Hold Instructions: Doctor's Order Crestor 10 mg tablet 10 mg PO DAILY Qty: 30 0RF Hold Instructions: Doctor's Order Discharge Orders: Discharge ED (Routine); Ordered 05/14/23 Ordered By: Rupert Morataya Referrals: Yun Marrero FNP [Primary Care Provider] - Discharge Diet: Advance as tolerated Discharge Activity: Resume usual activity Patient Instructions: Opioid Safety, Pain Management Activity Restrictions/Additional Instructions: Activity Restrictions/Additional Instructions: [facility]. Please realize that you were seen in the Emergency Department and that we are providing you with an emergency medical screening exam and this may not be a complete and all inclusive of all the testing and or medical work-up that you may need to determine your ailment or severity of your illness. It is very important that you follow-up as instructed with your Primary care provider or Specialist for additional evaluation and to discuss your medical treatment plan. You may return to the Emergency Department should you have concerns or if your condition changes or worsens in any way. Coding Level of Care Code ED Expediter Service Order for 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
[2023-05-14 21:23] VITALS: BP 111/76; PULSE 78; O2SAT 96
[2023-05-14 21:34] VITALS: BP 121/78; PULSE 80; RESP 14; O2SAT 97
== END 2023-05-14 21:34 | disposition home or self-care (01) ==
PROVIDERS: Emergency Provider Internal Medicine; PCP Nurse Practitioner Family
DX: R07.89 Other chest pain (principal); Z79.02 Long term (current) use of antithrombotics/antiplatelets; Z79.82 Long term (current) use of aspirin; Z87.891 Personal history of nicotine dependence; I10 Essential (primary) hypertension
CPT/HCPCS: 71045; 80053; 83880; 84484; 85025; 85610; 93005; 99285

== ENCOUNTER 2023-07-26 07:28 | Emergency (ER) | payer OTHER, SELFPAY ==
[2023-07-26 07:32] VITALS: BP 161/96; PULSE 71; TEMP 36.6; O2SAT 97; BMI 32.5
--- NOTE | 2023-07-26 07:33 | ECG_ITS ---
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 Measurements Intervals [place] Rate: 66 P: 38 [place]: 138 QRS: 31 QRSD: 100 T: 6 QT: 392 QTc: 414 Interpretive Statements SINUS RHYTHM NONSPECIFIC T-WAVE ABNORMALITY Compared to ECG 05/14/2023 20:40:05 T-wave abnormality now present Sinus arrhythmia no longer present Intraventricular conduction delay no longer present Electronically Signed On 07-26-2023 13:12:59 CDT by Leander Jean M.D. [id number] [email or web address]
--- NOTE | 2023-07-26 07:34 | XR_ITS ---
WS: [id number] PORTABLE CHEST HISTORY: chest pain COMPARISON: 05/14/2023 Lungs are clear and well expanded. No pleural effusion or pneumothorax. Cardiac size: Normal. Mediastinum/Aorta: Normal mediastinum. No osseous abnormality seen. IMPRESSION: Unremarkable portable chest.
--- NOTE | 2023-07-26 07:48 | ED_ITS ---
HPI - Chest Pain 2 General: Chief Complaint: Chest Pain Stated Complaint: chest pain Time Seen by Provider: 07/26/23 07:33 Source: patient and family () Mode of arrival: ambulatory Limitations: no limitations History of Present Illness: Patient is a 53-year-old male who presents to ED today with a complaint of transient and labile blood pressures and chest pains. Patient states he has been having issues for years now . He states normally his blood pressure is controlled but he will have intermittent spikes as well as low blood pressures in the 100s/50s. He feels like when his blood pressure is on the higher end he will develop chest pain and feels like my heart is strained . Patient has underwent extensive cardiac evaluation including coronary angiograms, stress tests, echos, holter monitors, etc all of which are reportedly normal. Last stress test was last year. Just followed up with cardiology last month. He states he has even went as far as being worked up and evaluated for a pheochromocytoma and other catecholamine producing tumors-all were negative. He arrives today in no acute distress. Vitals are stable apart from blood pressure at 161/96 although during my initial history blood pressure repeated and is now 120/87. He is taking Metoprolol and Telmisartan-HCTZ for blood pressure. He does take a PRN clonidine when blood pressures start creeping up around 150s-160s. States on a weekly average he might take 2-3 doses of this. He does admittedly take his blood pressure several times repeatedly during these spells and thinks there may be some degree of anxiety. He is seeing a counselor for this. complaint: chest pain Onset (ago): day(s) Timing of current episode: episodic Prior episodes: Yes Onset: during rest Pain location: right chest Pain radiation: none Severity: mild Relieving factors: nothing Exacerbating factors: nothing Associated symptoms: Deny dyspnea, fever(s), nausea, palpitations, syncope or vomiting Treatment prior to arrival: none Risk Factors: Coronary artery disease risk factors: hypertension Thoracic aortic dissection risk factors: none Review of Systems 2 Const: Denies: fever(s), chills, body aches, fatigue or malaise Eyes: Denies: change in vision, blurry vision, photophobia, floaters or seeing flashes Card: Reports: chest pain; Denies: palpitations, irregular heart rhythm, edema, swelling of feet/ankles, lightheadedness, syncope, pre-syncope, dyspnea on exertion, orthopnea, leg pain with exertion or acrocyanosis Resp: Denies: dyspnea GI: Denies: nausea or vomiting Musc: Denies: neck pain, back pain, extremity pain or joint pain Skin/Breast: Denies: rash Neuro: Denies: headache(s), numbness in extremities, weakness in extremities, sensory changes or dizziness PFSH ED 2 PFSH: Medical History (Updated 07/26/23 @ 08:34 by LUIS Mena) Atypical chest pain Tachycardia Benign essential hypertension with target blood pressure below 140/90 Palpitation Herpes simplex Anxiety Hypertension IBS (irritable bowel syndrome) Tendonitis of foot Surgical History Hx of cholecystectomy Hx of appendectomy Family History Other Cancer Diabetes Hyperlipidemia Hypertension Denies family history of CAD (coronary artery disease) Clotting disorder Dementia Chronic kidney disease (CKD) Anesthesia complication Bleeding disorder Stroke Social History Smoking and tobacco/nicotine status: former use of tobacco/nicotine Alcohol intake: current Alcohol intake frequency: 3 or more drinks per day Substance/Drug Use: never Physical Exam 2 Const: COMMON NORMALS: no acute distress, average body habitus, patient oriented x3, no limitations, healthy appearing, alert and well nourished O RIENTATION/CONSCIOUSNESS: Yes awake, Yes oriented to person, Yes oriented to place and Yes oriented to time HENMT: COMMON NORMALS: normocephalic and atraumatic HEAD & SCALP: normal to inspection, normocephalic and atraumatic Neck/C-Spine: COMMON NORMALS: full ROM, no lymphadenopathy, supple, no meningeal signs and no JVD Chest: COMMONS NORMALS: normal inspection of the chest and normal palpation of entire chest wall Resp: COMMON NORMALS: normal respiratory effort and clear to auscultation bilaterally AUSCULTATION: clear to auscultation bilaterally Cardio: COMMON NORMALS: no JVD, regular rate and regular rhythm RATE: r egular rate RHYTHM: regular rhythm GI: COMMON NORMALS: Normal to inspection, nondistended, normoactive bowel sounds present, Soft to palpation, non-tender, No hepatosplenomegaly present and no masses PALPATION: Yes Soft to palpation and Yes No hepatosplenomegaly present Extremity: COMMON NORMALS: normal to inspection, no clubbing, cyanosis or edema, no calf tenderness and no pedal edema GENERAL: Yes normal exam except as noted Neuro: KAI COMA SCALE: document GCS findings Kai coma scale eye opening: Spontaneous [place] coma scale verbal response: Orientated Kai coma scale motor response: Obey commands [place] coma scale total score: 15 COMMON NORMALS: patient oriented x3, moves all extremities, no focal motor deficits and no sensory deficits noted SENSORIUM/ORIENTATION: Yes alert, Yes oriented to person, Yes oriented to place and Yes oriented to time MENINGEAL SIGNS: Yes no meningeal signs Skin: COMMON NORMALS: no rashes or lesions noted GENERAL SKIN EXAM: no rashes or lesions noted Course 2 Vital Signs: Vital signs: Vital Signs Temperature 97.9 F 07/26/23 07:32 Pulse Rate 68 07/26/23 07:50 Blood Pressure 120/87 07/26/23 07:50 Pulse Oximetry 97 07/26/23 07:50 Oxygen Delivery Me thod Room Air 07/26/23 07:50 MDM - Chest Pain Medical Decision Making This time I do not have any concern for acute coronary syndrome. His blood work including baseline troponin is unremarkable. His CXR is normal. His EKG is normal and unchanged from previous. Systolic blood pressures here have been anywhere from 160s down to 100s. We did discuss rebound hypertension from the clonidine but he states he is not taking this medication often. I am hesitant to change his baseline blood pressure meds as he does have low readings at home 100s/50s. At this time patient is stable for discharge from an emergency standpoint. Recommend follow up with PCP and/or cardiology. Lab Data 07/26/23 07:40 07/26/23 07:40 Laboratory Results WBC 3.84 10^3/uL (3.29-11.43) 07/26/23 07:40 RBC 5.13 10^6/uL (3.85-5.65) 07/26/23 07:40 Hgb 15.10 g/dL (11.27-16.99) 07/26/23 07:40 Hct 44.6 % (37-53) 07/26/23 07:40 MCV 86.9 fl (82-101) 07/26/23 07:40 MCH 29.4 pg (27-33) 07/26/23 07:40 MCHC 33.9 g/dL (30-55) 07/26/23 07:40 RDW 12.9 % (12.1-15.1) 07/26/23 07:40 Plt Count 204 10^3/cmm (157-399) 07/26/23 07:40 MPV 10.5 fL (7.4-10.4) H 07/26/23 07:40 Neut % (Auto) 59.5 % 07/26/23 07:40 Lymph % (Auto) 27.6 % 07/26/23 07:40 Villalba % (Auto) 6.8 % 07/26/23 07:40 Eos % (Auto) 4.2 % 07/26/23 07:40 Baso % (Auto) 1.6 % 07/26/23 07:40 Neut # (Auto) 2.29 10^3/uL (1.8-7.7) 07/26/23 07:40 Lymph # (Auto) 1.1 10^3/uL (0.8-4.8) 07/26/23 07:40 Villalba # (Auto) 0.3 10^3/uL (0.2-0.9) 07/26/23 07:40 Eos # (Auto) 0.2 10^3/uL (0.0-0.8) 07/26/23 07:40 Baso # (Auto) 0.1 10^3/uL (0.0-0.1) 07/26/23 07:40 Nucleated RBC % (auto) 0 % 07/26/23 07:40 Nucleated RBCs # 0.0 /100WBC 07/26/23 07:40 Sodium 139 mmol/L (136-145) 07/26/23 07:40 Potassium 3.5 mmol/L (3.5-5.1) 07/26/23 07:40 Chloride 102 mmol/L (98-107) 07/26/23 07:40 Carbon Dioxide 27 mmol/L (22-29) 07/26/23 07:40 Anion Gap 13.5 (5-19) 07/26/23 07:40 BUN 10 mg/dL (6-20) 07/26/23 07:40 Creatinine 0.7 mg/dL (0.7-1.2) 07/26/23 07:40 GFR Calculation 117.5 mL/min (90-130) 07/26/23 07:40 Glucose 105 mg/dL (65-115) 07/26/23 07:40 Calculated Osmolality 287 mOsm/kg (285-295) 07/26/23 07:40 Calcium 9.4 mg/dL (8.5-10.5) 07/26/23 07:40 Total Bilirubin 0.7 mg/dL (0.15-1.2) 07/26/23 07:40 AST 16 U/L (0-40) 07/26/23 07:40 ALT 31 U/L (0-41) 07/26/23 07:40 Alkaline Phosphatase 69 U/L (40-130) 07/26/23 07:40 Troponin T Baseline 7 ng/L (0-15) 07/26/23 07:40 Total Protein 7.1 g/dL (6.6-8.7) 07/26/23 07:40 Albumin 4.4 g/dL (3.5-5.2) 07/26/23 07:40 Globulin 2.7 g/dL (1.3-4.6) 07/26/23 07:40 All radiology interpretation(s) finalized by discharge Discharge Plan Discharge Patient Disposition: Home Clinical Impression: Atypical chest pain, Labile blood pressure Condition: Stable Prescriptions: No Action fexofenadine [Shahnaz Allergy] 180 mg tablet 180 mg PO DAILY lorazepam 0.5 mg tablet 0.5 mg PO DAILY PRN (Reason: Anxiety) valacyclovir 500 mg tablet 500 mg PO BID PRN (Reason: prn) (DME) Custom Molded orthotics See Rx Instructions .Route .MEDSUPPLY Qty: 1 0RF Rx Instructions: As directed (DME) night splint See Rx Instructions .Route .MEDSUPPLY Qty: 1 0RF Rx Instructions: As directed metoprolol succinate 50 mg tablet extended release 24 hr 50 mg PO DAILY Qty: 14 5RF (DME) co-poly custom insoles See Rx Instructions .Route .MEDSUPPLY Qty: 1 0RF Rx Instructions: As directed by ABHIJEET&O magnesium 250 mg tablet 250 mg PO DAILY Qty: 90 3RF tizanidine 4 mg tablet 4 mg PO Q6H PRN (Reason: muscle spasms) clonidine HCl 0.2 mg tablet 0.2 mg PO BID albuterol sulfate 90 mcg/actuation HFA aerosol inhaler 2 puff INHALATION Q4H PRN (Reason: Shortness Of Breath) Micardis HCT 80-25 mg tablet 1 tab PO DAILY Plavix 75 mg tablet 75 mg PO QPM aspirin 81 mg tablet,delayed release (DR/EC) 81 mg PO QPM Discharge Orders: Discharge ED (Routine); Ordered 07/26/23 Ordered By: Wendy Cross Referrals: Janes,MAURICE Malcolm [Primary Care Provider] - Coding Level of Care Code ED Collator Hand for 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
[2023-07-26 07:50] VITALS: BP 120/87; PULSE 68; O2SAT 97
[2023-07-26 08:04] LABS: Alanine Aminotransferase 31 U/L (0-41); Albumin Level 4.4 g/dL (3.5-5.2); Alkaline Phosphatase 69 U/L (40-130); Anion Gap 13.5 (5-19); Aspartate Amino Transferase 16 U/L (0-40); Blood Urea Nitrogen 10 mg/dL (6-20); Calcium 9.4 mg/dL (8.5-10.5); Carbon Dioxide 27 mmol/L (22-29); Chloride 102 mmol/L (98-107); Globulin 2.7 g/dL (1.3-4.6); Glomerular Filtration Rate 117.5 mL/min (90-130); Glucose 105 mg/dL (65-115); Osmolality Calculated 287 mOsm/kg (285-295); Potassium 3.5 mmol/L (3.5-5.1); Sodium 139 mmol/L (136-145); Total Bilirubin 0.7 mg/dL (0.15-1.2); Total Protein 7.1 g/dL (6.6-8.7)
[2023-07-26 08:06] LABS: Troponin(5th) Baseline 7 ng/L (0-15)
[2023-07-26 08:11] LABS: Basophils # 0.1 10^3/uL (0.0-0.1); Basophils % 1.6 %; Eosinophils # 0.2 10^3/uL (0.0-0.8); Eosinophils % 4.2 %; Hematocrit 44.6 % (37-53); Lymphocytes # 1.1 10^3/uL (0.8-4.8); Lymphocytes % 27.6 %; Mean Corpuscular HGB Conc 33.9 g/dL (30-55); Mean Corpuscular Hemoglobin 29.4 pg (27-33); Mean Corpuscular Volume 86.9 fl (82-101); Mean Platelet Volume 10.5 fL (7.4-10.4); Monocytes # 0.3 10^3/uL (0.2-0.9); Monocytes % 6.8 %; Neutrophils # 2.29 10^3/uL (1.8-7.7); Neutrophils % 59.5 %; Nucleated Red Blood Cells % 0 %; Platelet Count 204 10^3/cmm (157-399); Red Blood Count 5.13 10^6/uL (3.85-5.65); Red Cell Distribution Width 12.9 % (12.1-15.1); White Blood Count 3.84 10^3/uL (3.29-11.43)
[2023-07-26 08:40] VITALS: BP 121/92; PULSE 71; O2SAT 97
[2023-07-28 14:04] LABS: Lyme AB Screen <0.90 index
[2023-07-29 16:58] LABS: RMSF IGG NOT DETECTED; RMSF IGM NOT DETECTED
[2023-07-29 20:50] LABS: E. Chaffeensis AB IGG <1:64; E. Chaffeensis AB IGM <1:20
== END 2023-07-26 08:55 | disposition home or self-care (01) ==
PROVIDERS: Emergency Provider Physician Assistant; PCP Nurse Practitioner Family
DX: R07.89 Other chest pain (principal); I10 Essential (primary) hypertension; Z79.02 Long term (current) use of antithrombotics/antiplatelets; Z79.82 Long term (current) use of aspirin; Z87.891 Personal history of nicotine dependence
CPT/HCPCS: 71045; 80053; 84484; 85025; 86618; 86666; 86757; 93005; 99285

== ENCOUNTER 2023-08-17 23:00 | Emergency (ER) | payer OTHER, SELFPAY ==
[2023-08-17 23:03] VITALS: BP 117/70; PULSE 78; RESP 16; TEMP 36.6; O2SAT 96; BMI 32.5
--- NOTE | 2023-08-17 23:38 | XRR_ITS ---
PROCEDURE INFORMATION: Exam: XR Lumbosacral Spine Exam date and time: 08/17/2023 11:44 PM Age: 53 years old Clinical indication: Low back pain TECHNIQUE: Imaging protocol: Radiologic exam of the lumbosacral spine. Views: 2 or 3 views. COMPARISON: CT abdomen pelvis wo con [id number] 10/27/2022 2:28 PM FINDINGS: Bones/joints: L2 vertebral body minimal compression deformity suspected without retropulsion of bony fragments, not seen on prior exam. Mild to moderate L5/S1 disc space narrowing. Multilevel mild productive degenerative endplate changes throughout the spine. Lower thoracic spine moderate to severe disc space narrowing. Soft tissues: Unremarkable. XR/XR lumbar spine 2-3V* [id number] IMPRESSION: 1. Mild to moderate L5/S1 disc space narrowing. 2. Multilevel mild productive degenerative endplate changes throughout the spine. 3. Lower thoracic spine moderate to severe disc space narrowing. 4. L2 vertebral body minimal compression deformity suspected without retropulsion of bony fragments, not seen on prior exam.
[2023-08-17] MEDS: dexamethasone 10 mg/mL INJ 8 MG IM (23:50)
[2023-08-17] MEDS: orphenadrine 30 mg/mL Inj 2 mL 60 MG IM (23:51)
[2023-08-17] MEDS: ketorolac 60 mg/2 mL INJ IM (23:51)
--- NOTE | 2023-08-17 23:54 | ED_ITS ---
Documented by User: LUIS Davalos 08/18/23 00:36 HPI - Back Pain/Injury General: Chief Complaint: Back Pain/Injury Stated Complaint: Lower back pain Time Seen by Provider: 08/17/23 23:12 Source: patient Mode of arrival: ambulatory Limitations: no limitations History of Present Illness: Patient is a 53-year-old male who presents to the emergency department compla ining of right lower back pain for the past day. Patient notes that he was seen in May for back pain, though at that time it was to the bilateral paralumbar muscles. His back pain was atraumatic at that time. He notes that his pain feels similar this time though is only present on the right lower back. He again denies that it is nontraumatic and he cannot report any inciting event, stating that the pain began all of a sudden. He notes he was prescribed muscle relaxers in the past that helped, this time he took 1/2 of a tizanidine as well as Motrin that has not improved his pain at all. His pain is worse with any movements, no relieving factors stated at this time. He notes the pain is sharp to his right lower back, though he denies any radiation such as radiation down his right lower extremity. He denies any loss of bowel or bladder function, saddle anesthesia, or other distal neurovascular changes. No other symptoms to report at this time. MD elicited complaint: back pain Pertinent past history: prior back pain Onset (ago): day(s) Timing: constant Severity: severe Similar Symptoms Previously: Yes Quality: sharp Location: right lower back Radiation: none Exacerbating factors: movement and walking Relieving factors: none Associated symptoms: Reports no associated symptoms; Deny abdominal pain, chills, dysuria, fatigue, fever(s), nausea or vomiting Treatments prior to arrival: NSAIDS and other medications Work related injury: No Review of Systems General: Reports: 10 or more systems reviewed and unremarkable except in HPI and below Const: Denies: fever(s), chills or fatigue Eyes: Denies: change in vision ENMT: Denies: throat pain, ear or mastoid pain or nasal discharge Card: Denies: chest pain, palpitations, swelling of feet/ankles or lightheadedness Resp: Denies: dyspnea, productive cough or wheezing GI: Denies: abdominal pain, nausea, vomiting, diarrhea or constipation : Denies: flank pain, difficulty urinating, dysuria or urinary frequency Musc: Reports: back pain; Denies: neck pain, extremity pain or joint pain Skin/Breast: Denies: rash Neuro: Denies: headache(s), numbness in extremities or weakness in extremities PFS ED PFSH: Medical History (Updated 08/18/23 @ 00:34 by LUIS Davalos) Atypical chest pain Tachycardia Benign essential hypertension with target blood pressure below 140/90 Palpitation Herpes simplex Anxiety Hypertension IBS (irritable bowel syndrome) Tendonitis of foot Surgical History Hx of cholecystectomy Hx of appendectomy Family History Other Cancer Diabetes Hyperlipidemia Hypertension Denies family history of CAD (coronary artery disease) Clotting disorder Dementia Chronic kidney disease (CKD) Anesthesia complication Bleeding disorder Stroke Social History Smoking and tobacco/nicotine status: former use of tobacco/nicotine Alcohol intake: current Alcohol intake frequency: 3 or more drinks per day Substance/Drug Use: never Physical Exam Const: COMMON NORMALS: no acute distress, patient oriented x3 and no limitations GENERAL APPEARANCE: cooperative, comfortable and well developed ORIENTATION/CONSCIOUSNESS: Yes awake, Yes oriented to person, Yes oriented to place and Yes oriented to time HENMT: COMMON NORMALS: normocephalic, atraumatic and hearing grossly normal bilaterally HEAD & SCALP: normocephalic and atraumatic Eye: COMMON NORMALS: Equal, round and reactive pupils present, EOMs intact bilaterally and conjunctivae normal CONJUNCTIVA: Yes conjunctivae normal PUPIL: Yes Equal, round and reactive pupils present Neck/C-Spine: COMMON NORMALS: full ROM, supple and no JVD Resp: COMMON NORMALS: normal respiratory effort, No retractions, No use of accessory muscles and clear to auscultation bilaterally AUSCULTATION: clear to auscultation bilaterally Cardio: COMMON NORMALS: no JVD, regular rate, regular rhythm, No clicks present (Cardio), No murmurs present (Cardio) and No rub (Cardio) RATE: regular rate RHYTHM: regular rhythm GI: RECTAL EXAM: Yes deferred : COMMON NORMALS: Yes no CVA tenderness BLADDER/KIDNEY EXAM: Yes no CVA tenderness Back/Pelvis: COMMON NORMALS: no CVA tenderness, thoracic and lumbar spine normal to inspection and no thoracic nor lumbar tenderness THORACIC SPINE/UPPER BACK: Yes normal to inspection LUMBAR SPINE/LOWER BACK: Yes normal to inspection, Yes pain with ROM, No lumbar spinal tenderness, Yes paraspinal muscle tenderness Lumbar paraspinal muscle tenderness: right, No paraspinal muscle spasm and No mass present Extremity: COMMON NORMALS: normal to inspection, full ROM and capillary refill normal Neuro: COMMON NORMALS: patient oriented x3, moves all extremities, no focal motor deficits, no sensory deficits noted and deep tendon reflexes 2+ bilaterally SENSORIUM/ORIENTATION: Yes oriented to person, Yes oriented to place and Yes oriented to time Psych: COMMON NORMALS: mental status grossly normal and Normal thought process present THOUGHT PROCESS: Normal thought process present Skin: COMMON NORMALS: no rashes or lesions noted GENERAL SKIN EXAM: no rashes or lesions noted Course Vital Signs: Vital signs: Vital Signs Temperature 97.8 F 08/17/23 23:03 Pulse Rate 74 08/18/23 00:44 Respiratory Rate 18 08/18/23 00:44 Blood Pressure 117/70 08/17/23 23:03 Pulse Oximetry 98 08/18/23 00:44 Oxygen Delivery Me thod Room Air 08/17/23 23:03 MDM - Back Pain/Injury Medical Decision Making Patient was seen for 1 day of back pain. He had taken tizanidine and Motrin, did not relieve his pain. He had a similar pain a couple months ago in the ER, though at that time it was bilateral. Exam revealed some mild reproducible paralumbar tenderness palpation, no spinous process tenderness. Patient was given shots of Toradol, Norflex, and a steroid. X-ray showed signs of degenerative disc disease throughout his lumbar back, will refer him to orthospine for further evaluation. Upon recheck he states his pain is much imp roved and I will send him home with a 5-day course of Toradol as well as muscle relaxers. Strict return precautions given, patient endorses understanding. Labs Radiology Impressions Lumbar Spine X-Ray 08/17/23 23:38 IMPRESSION: 1. Mild to moderate L5/S1 disc space narrowing. 2. Multilevel mild productive degenerative endplate changes throughout the spine. 3. Lower thoracic spine moderate to severe disc space narrowing. 4. L2 vertebral body minimal compression deformity suspected without retropulsion of bony fragments, not seen on prior exam. All radiology interpretation(s) finalized by discharge Discharge Plan Discharge Patient Disposition: Home Clinical Impression: Strain of lumbar region Qualifiers: Encounter type: initial encounter Qualified Code(s): S39.012A - Strain of muscle, fascia and tendon of lower back, initial encounter DDD (degenerative disc disease) Qualifiers: Spinal region: lumbar Qualified Code(s): M51.36 - Other intervertebral disc degeneration, lumbar region Condition: Stable Prescriptions: New ketorolac 10 mg tablet 10 mg PO Q8H 5 Days Qty: 15 0RF cyclobenzaprine 10 mg tablet 10 mg PO TID Qty: 30 0RF No Action fexofenadine [Shahnaz Allergy] 180 mg tablet 180 mg PO DAILY lorazepam 0.5 mg tablet 0.5 mg PO DAILY PRN (Reason: Anxiety) valacyclovir 500 mg tablet 500 mg PO BID PRN (Reason: prn) (DME) Custom Molded orthotics See Rx Instructions .Route .MEDSUPPLY Qty: 1 0RF Rx Instructions: As directed (DME) night splint See Rx Instructions .Route .MEDSUPPLY Qty: 1 0RF Rx Instructions: As directed (DME) co-poly custom insoles See Rx Instructions .Route .MEDSUPPLY Qty: 1 0RF Rx Instructions: As directed by ABHIJEET&O metoprolol succinate 50 mg tablet extended release 24 hr 25 mg PO DAILY Qty: 14 5RF magnesium 250 mg tablet 250 mg PO DAILY Qty: 90 3RF tizanidine 4 mg tablet 4 mg PO Q6H PRN (Reason: muscle spasms) clonidine HCl 0.2 mg tablet 0.2 mg PO BID albuterol sulfate 90 mcg/actuation HFA aerosol inhaler 2 puff INHALATION Q4H PRN (Reason: Shortness Of Breath) Micardis HCT 80-25 mg tablet 1 tab PO DAILY Plavix 75 mg tablet 75 mg PO QPM aspirin 81 mg tablet,delayed release (DR/EC) 81 mg PO QPM Discharge Orders: Discharge ED (Routine); Ordered 08/18/23 Ordered By: Jayden Mohan Referrals: Janes,MAURICE Malcolm [Primary Care Provider] - Discharge Diet: Usual diet Discharge Activity: Increase activity as tolerated Patient Instructions: Low Back Strain (ED), Degenerative Disc Disease (ED), Lower Back Exercises (ED), Pain Management Activity Restrictions/Additional Instructions: Toradol as prescribed. Cyclobenzaprine as prescribed. Gentle range of motion exercises as tolerated. Follow-up with Ortho/spine as discussed. Monitor for any new or worsening symptoms you may have and return for reevaluation. Coding Level of Care Code ED Cotton Baler for Chg Fwd Documented by User: Schuyler Stevenson DO 08/19/23 07:02 HPI - Back Pain/Injury General: Chief Complaint: Back Pain/Injury Stated Complaint: Lower back pain Time Seen by Provider: 08/17/23 23:12 [facility] ED PFSH: Medical History (Updated 08/18/23 @ 00:34 by LUIS Davalos) Atypical chest pain Tachycardia Benign essential hypertension with target blood pressure below 140/90 Palpitation Herpes simplex Anxiety Hypertension IBS (irritable bowel syndrome) Tendonitis of foot Surgical History Hx of cholecystectomy Hx of appendectomy Family History Other Cancer Diabetes Hyperlipidemia Hypertension Denies family history of CAD (coronary artery disease) Clotting disorder Dementia Chronic kidney disease (CKD) Anesthesia complication Bleeding disorder Stroke Social History Smoking and tobacco/nicotine status: former use of tobacco/nicotine Alcohol intake: current Alcohol intake frequency: 3 or more drinks per day Substance/Drug Use: never Course Vital Signs: Vital signs: Vital Signs Temperature 97.8 F 08/17/23 23:03 Pulse Rate 74 08/18/23 00:44 Respiratory Rate 18 08/18/23 00:44 Blood Pressure 117/70 08/17/23 23:03 Pulse Oximetry 98 08/18/23 00:44 Oxygen Delivery Me thod Room Air 08/17/23 23:03 MDM - Back Pain/Injury Medical Decision Making Patient was seen for 1 day of back pain. He had taken tizanidine and Motrin, did not relieve his pain. He had a similar pain a couple months ago in the ER, though at that time it was bilateral. Exam revealed some mild reproducible paralumbar tenderness palpation, no spinous process tenderness. Patient was given shots of Toradol, Norflex, and a steroid. X-ray showed signs of degenerative disc disease throughout his lumbar back, will refer him to orthospine for further evaluation. Upon recheck he states his pain is much improved and I will send him home with a 5-day course of Toradol as well as muscle relaxers. Strict return precautions given, patient endorses understand ing. Chart reviewed Labs Radiology Impressions Lumbar Spine X-Ray 08/17/23 23:38 IMPRESSION: 1. Mild to moderate L5/S1 disc space narrowing. 2. Multilevel mild productive degenerative endplate changes throughout the spine. 3. Lower thoracic spine moderate to severe disc space narrowing. 4. L2 vertebral body minimal compression deformity suspected without retropulsion of bony fragments, not seen on prior exam. Discharge Plan Discharge Patient Disposition: Home Clinical Impression: Strain of lumbar region Qualifiers: Encounter type: initial encounter Qualified Code(s): S39.012A - Strain of muscle, fascia and tendon of lower back, initial encounter DDD (degenerative disc disease) Qualifiers: Spinal region: lumbar Qualified Code(s): M51.36 - Other intervertebral disc degeneration, lumbar region Condition: Stable Prescriptions: New ketorolac 10 mg tablet 10 mg PO Q8H 5 Days Qty: 15 0RF cyclobenzaprine 10 mg tablet 10 mg PO TID Qty: 30 0RF No Action fexofenadine [Shahnaz Allergy] 180 mg tablet 180 mg PO DAILY lorazepam 0.5 mg tablet 0.5 mg PO DAILY PRN (Reason: Anxiety) valacyclovir 500 mg tablet 500 mg PO BID PRN (Reason: prn) (DME) Custom Molded orthotics See Rx Instructions .Route .MEDSUPPLY Qty: 1 0RF Rx Instructions: As directed (DME) night splint See Rx Instructions .Route .MEDSUPPLY Qty: 1 0RF Rx Instructions: As directed (DME) co-poly custom insoles See Rx Instructions .Route .MEDSUPPLY Qty: 1 0RF Rx Instructions: As directed by ABHIJEET&O metoprolol succinate 50 mg tablet extended release 24 hr 25 mg PO DAILY Qty: 14 5RF magnesium 250 mg tablet 250 mg PO DAILY Qty: 90 3RF tizanidine 4 mg tablet 4 mg PO Q6H PRN (Reason: muscle spasms) clonidine HCl 0.2 mg tablet 0.2 mg PO BID albuterol sulfate 90 mcg/actuation HFA aerosol inhaler 2 puff INHALATION Q4H PRN (Reason: Shortness Of Breath) Micardis HCT 80-25 mg tablet 1 tab PO DAILY Plavix 75 mg tablet 75 mg PO QPM aspirin 81 mg tablet,delayed release (DR/EC) 81 mg PO QPM Discharge Orders: Discharge ED (Routine); Ordered 08/18/23 Ordered By: Jayden Mohan Referrals: Yun Marrero FNP [Primary Care Provider] - Discharge Diet: Usual diet Discharge Activity: Increase activity as tolerated Patient Instructions: Low Back Strain (ED), Degenerative Disc Disease (ED), Lower Back Exercises (ED), Pain Management Activity Restrictions/Additional Instructions: Toradol as prescribed. Cyclobenzaprine as prescribed. Gentle range of motion exercises as tolerated. Follow-up with Ortho/spine as discussed. Monitor for any new or worsening symptoms you may have and return for reevaluation. Coding Level of Care Code ED Cotton Baler for 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
[2023-08-18 00:44] VITALS: PULSE 74; RESP 18; O2SAT 98
--- NOTE | 2023-08-18 07:35 | DCPLANNER ---
message sent to ortho for er follow up
== END 2023-08-18 00:41 | disposition home or self-care (01) ==
PROVIDERS: Emergency Provider Physician Assistant; PCP Nurse Practitioner Family
DX: S39.012A Strain of muscle, fascia and tendon of lower back, initial encounter (principal); M51.36 Other intervertebral disc degeneration, lumbar region; Z79.02 Long term (current) use of antithrombotics/antiplatelets; Z79.82 Long term (current) use of aspirin; Z87.891 Personal history of nicotine dependence; I10 Essential (primary) hypertension; X58.XXXA Exposure to other specified factors, initial encounter
CPT/HCPCS: 72100; 96372; 99284; J1100; J1885; J2360

== ENCOUNTER → 2023-08-26 08:19 | Outpatient (BNVA) | payer OTHER, SELFPAY | PROVIDERS: PCP Nurse Practitioner Family; Referring Provider Physician Assistant; Visit Provider Orthopaedic Surgery | DX: M51.36 Other intervertebral disc degeneration, lumbar region (principal) | CPT/HCPCS: 72110 ==

== ENCOUNTER 2023-09-21 15:53 | Outpatient (CLI) | payer OTHER, SELFPAY ==
--- NOTE | 2023-09-21 15:57 | MR_ITS ---
WS: [id number] MRI/MRCP OF THE ABDOMEN WITHOUT GADOLINIUM ENHANCEMENT TECHNIQUE: Coronal T2 Fase BH, Axial T2 Fase BH, Axial T2 FS BH, Zxial 3D Hubbard BH, Axial DWI BH, 2D MRCP Radial BH, 3D MRCP (Resp), and Axial 3D Dyn BH Post sequences. CLINICAL INFORMATION: RENAL MASS COMPARISON: MRI 01/05/2023 FINDINGS: LEFT mid renal cyst measuring 4.1 x 3.3 cm increased slightly in size compared to previous. Stable lesion upper pole LEFT kidney medially measuring 2.0 x 1.9 cm unchanged. No enhancement. This lesion demonstrates increased T1 signal compatible with proteinaceous or hemorrhagic cyst. Additional tiny LEFT renal cyst. Tiny RIGHT renal cyst unchanged. No hydronephrosis in either kidney. Adrenal glands are normal. Mild diffuse fatty infiltration of the liver. Pancreas appears normal. Small esophageal hernia. Normal caliber upper abdominal aorta. Ashlyn c and SMA appear patent. Normal spleen. MR/MR abdomen wo/w con* [id number] Impression: 1. Previous described complex upper pole LEFT renal lesion with T1 hyperintens ity is unchanged. Recommend continued annual surveillance with ultrasound or MR I. 2. LEFT mid renal cyst has increased in size slightly described above. 3. No hydronephrosis in either kidney. 4. Mild diffuse fatty infiltration of the liver. 5. No other significant interval changes.
[2023-09-21] MEDS: gadobenate dimeglumine 20 mL vial IV (16:42)
== END 2023-09-21 15:54 | disposition home or self-care (01) ==
LOC: RAD 15:53
PROVIDERS: Visit Provider Nurse Practitioner Family
DX: N28.89 Other specified disorders of kidney and ureter (principal); N28.1 Cyst of kidney, acquired; K76.0 Fatty (change of) liver, not elsewhere classified
CPT/HCPCS: 74183; A9577

== ENCOUNTER 2023-09-23 06:00 | Outpatient (RCR) | payer OTHER, SELFPAY | END 2023-10-17 23:59 | disposition home or self-care (01) | LOC: SPT 06:00 | PROVIDERS: Visit Provider Orthopaedic Surgery | DX: M54.50 Low back pain, unspecified (principal) | CPT/HCPCS: 97110; 97161 ==

== ENCOUNTER 2023-10-18 06:00 | Outpatient (RCR) | payer OTHER, SELFPAY | END 2023-11-17 23:59 | disposition home or self-care (01) | LOC: SPT 06:00 | PROVIDERS: Visit Provider Orthopaedic Surgery | DX: M54.50 Low back pain, unspecified (principal) | CPT/HCPCS: 97110 ==

== ENCOUNTER 2023-11-18 06:00 | Outpatient (RCR) | payer OTHER, SELFPAY | END 2023-11-18 23:59 | disposition home or self-care (01) | LOC: SPT 06:00 | PROVIDERS: Visit Provider Orthopaedic Surgery | DX: M54.50 Low back pain, unspecified (principal) | CPT/HCPCS: 97110 ==

== ENCOUNTER 2023-12-15 07:48 | Outpatient (CLI) | payer OTHER, SELFPAY ==
--- NOTE | 2023-12-15 08:00 | MR_ITS ---
WS: [id number] MRI LUMBAR SPINE NONCONTRAST HISTORY: back pain COMPARISON: None available. TECHNIQUE: Sagittal and axial multisequence imaging is submitted. T7-8 Central disc protrusion contacts the thoracic cord. Normal lumbar alignment with no compression fractures or marrow edema. Mild disc desiccation without narrowing throughout the lumbar spine. L1 hemangioma. Conus terminates normally at L1-2 disc level. L1-L2: Normal. L2-L3: Mild bilateral facet disease and ligamentum flavum hypertrophy. No stenosis. L3-L4: Mild annular disc bulging with mild ligamentum flavum and facet arthritis. There is mild disc encroachment into the subarticular recesses. No high-grade stenosis. Mild narrowing of the LEFT barbara en. L4-L5: Mild annular disc bulge with a central disc protrusion and annular fissure. Disc protrusion sl ightly contacting but not displacing the LEFT traversing L5 nerve root. Mild ligamentum flavum and fa cet arthritis. Minimal narrowing of the LEFT foramen. L5-S1: Small central disc protrusion with annular fissure. Very slight contact on the RIGHT S1 nerve root but no high-grade stenosis. Partially visualized cystic mass 3.1 cm LEFT kidney. There is a smaller cortical cyst in the LEFT kid also. MR/MR lumbar spine wo con* [id number] IMPRESSION: 1. No high-grade central or foraminal stenosis. 2. L4-5: Small central disc protrusion with very minimal contact on the LEFT t raversing L5 nerve root. Mild LEFT foraminal narrowing. 3. L5-S1: Small central disc protrusion with annular fissure. Very slight disc contact on the RIGHT S1 nerve root. 4. L3-4: Very minimal disc encroachment into the subarticular recesses. Mild L EFT foraminal narrowing.
== END 2023-12-15 07:49 | disposition home or self-care (01) ==
LOC: RAD 07:51
PROVIDERS: PCP Nurse Practitioner Family; Visit Provider Orthopaedic Surgery
DX: M51.26 Other intervertebral disc displacement, lumbar region (principal); Q61.02 Congenital multiple renal cysts
CPT/HCPCS: 72148

== ENCOUNTER 2024-02-20 15:53 | Emergency (ER) | payer OTHER, SELFPAY ==
--- NOTE | 2024-02-20 15:57 | XRR_ITS ---
PROCEDURE INFORMATION: Exam: XR Chest Exam date and time: 02/20/2024 4:47 PM Age: 53 years old Clinical indication: Pain; Chest pressure; Additional info: Cp TECHNIQUE: Imaging protocol: Radiologic exam of the chest. Views: 1 view. COMPARISON: CR XR chest 1V portable [id number] 07/26/2023 8:10 AM FINDINGS: Lungs: Unremarkable. No consolidation. Pleural spaces: Unremarkable. No pleural effusion. No pneumothorax. Heart/Mediastinum: Unremarkable. No cardiomegaly. Bones/joints: Unremarkable. XR/XR chest 1V portable [id number] IMPRESSION: No acute findings.
--- NOTE | 2024-02-20 16:11 | ECG_ITS ---
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 Measurements Intervals [place] Rate: 86 P: 41 MO: 143 QRS: 48 QRSD: 114 T: 36 QT: 389 QTc: 466 Interpretive Statements SINUS RHYTHM WITH OCCASIONAL SUPRAVENTRICULAR PREMATURE COMPLEXES LOW QRS VOLTAGE IN PRECORDIAL LEADS [QRS DEFLECTION < 1.0 mV IN CHEST LEADS] POSSIBLE INFERIOR MYOCARDIAL INFARCTION , PROBABLY OLD [30 ms Q WAVE IN II/aVF] Compared to ECG 07/26/2023 07:33:21 Low QRS voltage now present Myocardial infarct finding now present T-wave abnormality no longer present Electronically Signed On 02-24-2024 21:58:06 [employer] by Leonides Claros M.D. [email or web address]
[2024-02-20 16:22] VITALS: BP 158/87; PULSE 89; RESP 17; TEMP 36.9; O2SAT 98; BMI 32.5
[2024-02-20 16:40] LABS: Basophils # 0.1 10^3/uL (0.0-0.1); Basophils % 1.2 %; Eosinophils # 0.2 10^3/uL (0.0-0.8); Eosinophils % 3.1 %; Hematocrit 42.9 % (37-53); Lymphocytes # 1.4 10^3/uL (0.8-4.8); Lymphocytes % 28.5 %; Mean Corpuscular HGB Conc 34.3 g/dL (30-55); Mean Corpuscular Hemoglobin 29.8 pg (27-33); Mean Corpuscular Volume 86.8 fl (82-101); Mean Platelet Volume 10.1 fL (7.4-10.4); Monocytes # 0.4 10^3/uL (0.2-0.9); Monocytes % 7.7 %; Neutrophils # 2.85 10^3/uL (1.8-7.7); Neutrophils % 59.3 %; Nucleated Red Blood Cells % 0 %; Platelet Count 255 10^3/cmm (157-399); Red Blood Count 4.94 10^6/uL (3.85-5.65); Red Cell Distribution Width 13.2 % (12.1-15.1); White Blood Count 4.81 10^3/uL (3.29-11.43)
[2024-02-20 16:56] LABS: INR 0.96 (0.8-1.2)
[2024-02-20 17:02] LABS: Alanine Aminotransferase 33 U/L (0-41); Albumin Level 4.9 g/dL (3.5-5.2); Alkaline Phosphatase 76 U/L (40-130); Anion Gap 14.3 (5-19); Aspartate Amino Transferase 17 U/L (0-40); Blood Urea Nitrogen 8 mg/dL (6-20); Calcium 9.5 mg/dL (8.5-10.5); Carbon Dioxide 28 mmol/L (22-29); Chloride 100 mmol/L (98-107); Creatinine Clr Calc Pharmacy 122.9322; Globulin 1.4 g/dL (1.3-4.6); Glomerular Filtration Rate 100.7 mL/min (90-130); Glucose 98 mg/dL (65-115); Lipase 45 U/L (13-60); Osmolality Calculated 286 mOsm/kg (285-295); Potassium 3.3 mmol/L (3.5-5.1); Sodium 139 mmol/L (136-145); Total Bilirubin 0.7 mg/dL (0.15-1.2); Total Protein 6.3 g/dL (6.6-8.7)
[2024-02-20 17:05] LABS: Troponin(5th) Baseline < 6 ng/L (0-15)
--- NOTE | 2024-02-20 18:12 | ECG_ITS ---
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
[2024-02-20 19:01] VITALS: BP 141/91; PULSE 70; RESP 16; O2SAT 99
[2024-02-20 19:25] LABS: Troponin 5 2HR Delta 0.00001 ABS# (0-10)
--- NOTE | 2024-02-20 19:49 | W.ED.CHESTPA ---
HPI - Chest Pain General: Chief Complaint: Chest Pain Stated Complaint: chest pains Time Seen by Provider: 02/20/24 18:54 History of Present Illness: This patient is a 53-year-old white male who presents to the emergency department with palpitations. Patient states he started feeling the strain sensation in his chest around 2 PM. Continued to have symptoms until about 30 minutes ago. Patient has a history of hypertension. He is not having any chest pain or shortness of breath. Associated symptoms: Reports palpitations Related Data Home Medications Medication Instructions Recorded Confirmed fexofenadine 180 mg tablet 180 mg PO DAILY 11/08/19 01/04/24 (Shahnaz Allergy) lorazepam 0.5 mg tablet 0.5 mg PO DAILY PRN Anxiety 11/08/19 01/04/24 valacyclovir 500 mg tablet 500 mg PO BID PRN prn 01/16/20 01/04/24 albuterol sulfate 90 mcg/actuation 2 puff inhalation Q4H PRN 07/26/23 01/04/24 aerosol inhaler Shortness Of Breath aspirin 81 mg tablet,delayed 81 mg PO QPM 07/26/23 01/04/24 release clonidine HCl 0.2 mg tablet 0.2 mg PO BID 07/26/23 01/04/24 clopidogrel 75 mg tablet (Plavix) 75 mg PO QPM 07/26/23 01/04/24 telmisartan 80 1 tab PO DAILY 07/26/23 01/04/24 mg-hydrochlorothiazide 25 mg tablet (Micardis HCT) Previous Rx's Medication Instructions Recorded Custom Molded orthotics #1 ea 03/31/21 night splint #1 ea 03/31/21 magnesium 250 mg tablet 250 mg PO DAILY #90 tabs 07/20/22 co-poly custom insoles #1 ea 09/22/22 Allergies Allergy/AdvReac Type Severity Reaction Status Date / Time paroxetine [From Paxil] AdvReac Unknown dizziness, Verified 02/20/24 16:26 sexual dysfunction Review of Systems General: Reports: 10 or more systems reviewed and unremarkable except in HPI and below Card: Reports: palpitations [facility] ED PFS: Medical History (Updated 02/20/24 @ 19:47 by Zuhair Richard MD) Atypical chest pain Tachycardia Benign essential hypertension with target blood pressure below 140/90 Palpitation Herpes simplex Anxiety Hypertension IBS (irritable bowel syndrome) Tendonitis of foot Surgical History Hx of cholecystectomy Hx of appendectomy Family History Other Cancer Diabetes Hyperlipidemia Hypertension Denies family history of CAD (coronary artery disease) Clotting disorder Dementia Chronic kidney disease (CKD) Anesthesia complication Bleeding disorder Stroke Social History Smoking and tobacco/nicotine status: never used tobacco/nicotine Alcohol intake: current Alcohol intake frequency: 3 or more drinks per day Substance/Drug Use: never Physical Exam Const: COMMON NORMALS: no acute distress, patient oriented x3 and no limitations GENERAL APPEARANCE: cooperative and comfortable HENMT: COMMON NORMALS: normocephalic, atraumatic, Normal nasal mucous membranes and turbinates present, moist oral mucous membranes and oropharynx normal HEAD & SCALP: normal to inspection, normocephalic and atraumatic FACE & SINUS: normal facial exam NOSE: Normal nasal mucous membranes and turbinates present Eye: COMMON NORMALS: Equal, round and reactive pupils present, EOMs intact bilaterally and conjunctivae normal GENERAL EYE: appearance normal, both eyes and all related structures CONJUNCTIVA: Yes conjunctivae normal PUPIL: Yes Equal, round and reactive pupils present Neck/C-Spine: COMMON NORMALS: supple and no JVD Chest: COMMONS NORMALS: normal inspection of the chest Resp: COMMON NORMALS: normal respiratory effort and clear to auscultation bilaterally AUSCULTATION: clear to auscultation bilaterally Cardio: COMMON NORMALS: no JVD, regular rate, regular rhythm, No gallops present (Cardio), No murmurs present (Cardio) and No rub (Cardio) RATE: regular rate RHYTHM: regular rhythm GI: COMMON NORMALS: Normal to inspection, nondistended, normoactive bowel sounds present, Soft to palpation and non-tender AUSCULTATION: Yes normoactive bowel sounds PALPATION: Yes Soft to palpation : COMMON NORMALS: Yes no CVA tenderness BLADDER/KIDNEY EXAM: Yes no CVA tenderness Back/Pelvis: COMMON NORMALS: no CVA tenderness and thoracic and lumbar spine normal to inspection Extremity: COMMON NORMALS: normal to inspection Neuro: COMMON NORMALS: patient oriented x3 and CN's II-XII intact bilaterally Psych: COMMON NORMALS: mental status grossly normal, Normal thought process present and cooperative THOUGHT PROCESS: Normal thought process present Skin: COMMON NORMALS: no rashes or lesions noted, turgor normal and no jaundice GENERAL SKIN EXAM: no rashes or lesions noted and turgor normal Course Vital Signs: Vital signs: Vital Signs Temperature 98.5 F 02/20/24 16:22 Pulse Rate 70 02/20/24 19:01 Respiratory Rate 16 02/20/24 19:01 Blood Pressure 141/91 02/20/24 19:01 Pulse Oximetry 99 02/20/24 19:01 Oxygen Delivery Me thod Room Air 02/20/24 19:01 MDM - Chest Pain Medical Decision Making EKG reveals sinus rhythm with no ST segment abnormalities. There are PJCs. Chest x-ray was normal. CBC normal. CMP normal. Coags normal. Lipase normal at 45. Baseline troponin was less than 6 and a 2-hour level was less than 6. Patient is asymptomatic now. Discussed that he is having PJCs and these are benign. Did recommend he follow-up with his primary care physician for recheck. May need an event monitor or Holter monitor. He was discharged in stable condition. Lab Data 02/20/24 16:33 02/20/24 16:33 Radiology Impressions Chest X-Ray 02/20/24 15:57 IMPRESSION: No acute findings. Laboratory Results WBC 4.81 10^3/uL (3.29-11.43) 02/20/24 16:33 RBC 4.94 10^6/uL (3.85-5.65) 02/20/24 16:33 Hgb 14.70 g/dL (11.27-16.99) 02/20/24 16:33 Hct 42.9 % (37-53) 02/20/24 16:33 MCV 86.8 fl (82-101) 02/20/24 16:33 MCH 29.8 pg (27-33) 02/20/24 16:33 MCHC 34.3 g/dL (30-55) 02/20/24 16:33 RDW 13.2 % (12.1-15.1) 02/20/24 16:33 Plt Count 255 10^3/cmm (157-399) 02/20/24 16:33 MPV 10.1 fL (7.4-10.4) 02/20/24 16:33 Neut % (Auto) 59.3 % 02/20/24 16:33 Lymph % (Auto) 28.5 % 02/20/24 16:33 Schleicher % (Auto) 7.7 % 02/20/24 16:33 Eos % (Auto) 3.1 % 02/20/24 16:33 Baso % (Auto) 1.2 % 02/20/24 16:33 Neut # (Auto) 2.85 10^3/uL (1.8-7.7) 02/20/24 16:33 Lymph # (Auto) 1.4 10^3/uL (0.8-4.8) 02/20/24 16:33 Schleicher # (Auto) 0.4 10^3/uL (0.2-0.9) 02/20/24 16:33 Eos # (Auto) 0.2 10^3/uL (0.0-0.8) 02/20/24 16:33 Baso # (Auto) 0.1 10^3/uL (0.0-0.1) 02/20/24 16:33 Nucleated RBC % (auto) 0 % 02/20/24 16: Nucleated RBCs # 0.0 /100WBC 02/20/24 16:33 PT 13.10 SECONDS (12.1-14.9) 02/20/24 16:33 INR 0.96 (0.8-1.2) 02/20/24 16:33 Sodium 139 mmol/L (136-145) 02/20/24 16:33 Potassium 3.3 mmol/L (3.5-5.1) L 02/20/24 16:33 Chloride 100 mmol/L (98-107) 02/20/24 16:33 Carbon Dioxide 28 mmol/L (22-29) 02/20/24 16:33 Anion Gap 14.3 (5-19) 02/20/24 16:33 BUN 8 mg/dL (6-20) 02/20/24 16:33 Creatinine 0.8 mg/dL (0.7-1.2) 02/20/24 16:33 GFR Calculation 100.7 mL/min (90-130) 02/20/24 16:33 Glucose 98 mg/dL (65-115) 02/20/24 16:33 Calculated Osmolality 286 mOsm/kg (285-295) 02/20/24 16:33 Calcium 9.5 mg/dL (8.5-10.5) 02/20/24 16:33 Total Bilirubin 0.7 mg/dL (0.15-1.2) 02/20/24 16:33 AST 17 U/L (0-40) 02/20/24 16:33 ALT 33 U/L (0-41) 02/20/24 16:33 Alkaline Phosphatase 76 U/L (40-130) 02/20/24 16:33 Troponin T Baseline < 6 ng/L (0-15) 02/20/24 16:33 Troponin T 120 Minute 6.00 ng/L (0-15) 02/20/24 18:45 Delta Troponin T 0.69145 ABS# (0-10) 02/20/24 18:45 Total Protein 6.3 g/dL (6.6-8.7) L 02/20/24 16:33 Albumin 4.9 g/dL (3.5-5.2) 02/20/24 16:33 Globulin 1.4 g/dL (1.3-4.6) 02/20/24 16:33 Lipase 45 U/L (13-60) 02/20/24 16:33 All radiology interpretation(s) finalized by discharge Discharge Plan Discharge Patient Disposition: Home Clinical Impression: Palpitation, Premature junctional contractions Condition: Stable Prescriptions: No Action fexofenadine [Shahnaz Allergy] 180 mg tablet 180 mg PO DAILY lorazepam 0.5 mg tablet 0.5 mg PO DAILY PRN (Reason: Anxiety) valacyclovir 500 mg tablet 500 mg PO BID PRN (Reason: prn) (DME) Custom Molded orthotics See Rx Instructions .Route .MEDSUPPLY Qty: 1 0RF Rx Instructions: As directed (DME) night splint See Rx Instructions .Route .MEDSUPPLY Qty: 1 0RF Rx Instructions: As directed (DME) co-poly custom insoles See Rx Instructions .Route .MEDSUPPLY Qty: 1 0RF Rx Instructions: As directed by ABHIJEET&O magnesium 250 mg tablet 250 mg PO DAILY Qty: 90 3RF clonidine HCl 0.2 mg tablet 0.2 mg PO BID albuterol sulfate 90 mcg/actuation HFA aerosol inhaler 2 puff INHALATION Q4H PRN (Reason: Shortness Of Breath) Micardis HCT 80-25 mg tablet 1 tab PO DAILY Plavix 75 mg tablet 75 mg PO QPM aspirin 81 mg tablet,delayed release (DR/EC) 81 mg PO QPM Discharge Orders: Discharge ED (Routine); Ordered 02/20/24 Ordered By: Zuhair Richard Referrals: Janes,DENIS MalcolmP [Primary Care Provider] - Patient Instructions: Heart Palpitations Coding Level of Care Code ED 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
[2024-02-20 20:00] VITALS: BP 139/89; PULSE 62; RESP 18; O2SAT 98
[2024-02-20 20:21] VITALS: BP 134/88; PULSE 78; RESP 16; O2SAT 97
== END 2024-02-20 20:19 | disposition home or self-care (01) ==
PROVIDERS: Emergency Medicine; Emergency Provider Emergency Medicine; PCP Nurse Practitioner Family
DX: R00.2 Palpitations (principal); I49.2 Junctional premature depolarization; Z79.82 Long term (current) use of aspirin; I10 Essential (primary) hypertension
CPT/HCPCS: 36415; 71045; 80053; 83690; 84484; 85025; 85610; 93005; 99285

== ENCOUNTER → 2024-05-01 14:43 | Outpatient (BNVA) | payer OTHER, SELFPAY | PROVIDERS: PCP Nurse Practitioner Family; Referring Provider Orthopaedic Surgery; Visit Provider Anesthesiology Pain Medicine | DX: G89.29 Other chronic pain (principal); M47.816 Spondylosis without myelopathy or radiculopathy, lumbar region | CPT/HCPCS: 99205 ==

== ENCOUNTER → 2024-05-24 09:04 | Outpatient (BNVA) | payer OTHER, SELFPAY | PROVIDERS: PCP Nurse Practitioner Family; Visit Provider Anesthesiology Pain Medicine | DX: M47.816 Spondylosis without myelopathy or radiculopathy, lumbar region (principal); M54.50 Low back pain, unspecified; G89.29 Other chronic pain | CPT/HCPCS: 64493; 64494; 64495; J1010; J3490 ==

== ENCOUNTER 2024-05-30 10:34 | Day surgery (SDC) | payer OTHER, SELFPAY ==
[2024-05-30 10:43] VITALS: BP 150/93; PULSE 79; RESP 18; TEMP 36.6; O2SAT 95
[2024-05-30 10:49] VITALS: BMI 33.2
[2024-05-30] MEDS: sodium chloride 0.9% 500 ML 15 ML IV (10:54)
--- NOTE | 2024-05-30 11:07 | W.PM.OPSFHP ---
Same Day Surgery H&P Indication for Procedure/HPI DATE OF PROCEDURE: May 30, 2024 CHIEF COMPLAINT/INDICATIONFOR SURGICAL PROCEDURE: screening colonoscopy PREOP DIAGNOSIS: screening colonoscopy PLANNED PROCEDURE: Operation Date: 05/30/24 11:45 Proposed Procedures p Colonoscopy 75860, G0121, Z12.11(Not Applicable) - Nikita Guido MD Medications/Allergies* Home Medications ?Medication ?Instructions ?Recorded ?Confirmed ?Type fexofenadine 180 mg tablet 180 mg PO DAILY 11/08/19 05/30/24 History (Shahnaz Allergy) lorazepam 0.5 mg tablet 0.5 mg PO DAILY PRN Anxiety 11/08/19 05/30/24 History valacyclovir 500 mg tablet 500 mg PO BID PRN prn 01/16/20 05/30/24 History albuterol sulfate 90 mcg/actuation 2 puff inhalation Q4H PRN 07/26/23 05/30/24 History aerosol inhaler Shortness Of Breath clonidine HCl 0.2 mg tablet 0.2 mg PO BID PRN high bp 07/26/23 05/30/24 History telmisartan 80 1 tab PO DAILY 07/26/23 05/30/24 History mg-hydrochlorothiazide 25 mg tablet (Micardis HCT) fluoxetine 10 mg capsule 10 mg PO DAILY 05/24/24 05/30/24 History Allergies/Adverse Reactions Allergy/AdvReac Type Severity Reaction Status Date / Time paroxetine (From Paxil) AdvReac Unknown dizziness, Verified 05/30/24 10:44 sexual dysfunction Current Medications: Generic Name Dose Route Start Last Admin Trade Name Freq PRN Reason Stop Dose Admin Sodium Chloride 500 mls @ 15 mls/hr 05/30/24 10:41 05/30/24 10:54 Sodium Chloride 0.9% IV 05/31/24 10:40 15 mls/hr .Q24H PRN Administration COLONOSCOPY FLUIDS Pertinent History/Comorbid Conditions* Medical History (Updated 05/01/24 @ 15:08 by Tate Parada MD) Atypical chest pain Tachycardia Benign essential hypertension with target blood pressure below 140/90 Palpitation Herpes simplex Anxiety Hypertension IBS (irritable bowel syndrome) Tendonitis of foot Surgical History (Updated 11/08/19 @ 15:06 by Leonides Claros MD) Hx of cholecystectomy Hx of appendectomy Family History (Updated 11/08/19 @ 14:27 by Oly Desai RN) Diabetes Hyperlipidemia Cancer Hypertension Denies family history of CAD (coronary artery disease) Clotting disorder Dementia Chronic kidney disease (CKD) Anesthesia complication Bleeding disorder Stroke Social History Smoking and tobacco/nicotine status: never used tobacco/nicotine Alcohol intake: current Alcohol intake frequency: 3 or more drinks per day Substance/Drug Use: never Pertinent Exam Findings alert, oriented x 3, clear to auscultation bilaterally, regular rate & rhythm and procedure specific exam findings abdomen soft, nt, nd Recommendations Surgery/Procedure today Coding Level of Care Code Acute Code for Chg Fwd
--- NOTE | 2024-05-30 11:15 | ANES.PREANE2 ---
Pre-Anesthetic Assessment Height/Weight: Height 1.75 m Weight 102.058 kg Temp Pulse Resp BP Pulse Ox O2 Del Method 97.9 F 79 18 150/93 95 Room Air 05/30/24 10:43 05/30/24 10:43 05/30/24 10:43 05/30/24 10:43 05/30/24 10:43 05/30/24 10:43 Preop Diagnosis: screening colonoscopy Operation Date: 05/30/24 11:45 Proposed Procedures p Colonoscopy 43926, G0121, Z12.11(Not Applicable) - Nikita Guido MD Familial anesthetic complications: <del>none</del> Was Clonidine taken within 24 hours: N/A Last intake: Intake Last Liquid Date 05/29/24 Last Liquid Time 22:00 Last Solid Date 05/28/24 Last Solid Time 18:00 Social No alcohol and No tobacco Exam alert, oriented x 3, clear to auscultation bilaterally and regular rate & rhythm Airway Submandibular: within normal limits Cervical ROM: within normal limits Mallampati: Class II Comments: Comments: intact Pulmonary Sleep Apnea CPAP CV/HEM Arrythmia and Hypertension Tachycardia Hepatic None reported GI None reported Metabolic None reported Musc/skel None reported Neuropsych None reported Anesthetic Plan ASA status: 2 Anesthesia: MAC Risk of > 500 ml blood loss (7ml/kg in children): No Medications/Allergies Home Medications ?Medication ?Instructions ?Recorded ?Confirmed ?Last Taken ?Type fexofenadine 180 mg tablet 180 mg PO DAILY 11/08/19 05/30/24 05/29/24 History (Shahnaz Allergy) lorazepam 0.5 mg tablet 0.5 mg PO DAILY PRN Anxiety 11/08/19 05/30/24 05/28/24 History valacyclovir 500 mg tablet 500 mg PO BID PRN prn 01/16/20 05/30/24 Unknown History Custom Molded orthotics #1 ea 03/31/21 05/30/24 Unknown Rx night splint #1 ea 03/31/21 05/30/24 Unknown Rx magnesium 250 mg tablet 250 mg PO DAILY #90 tabs 07/20/22 05/30/24 05/29/24 Rx co-poly custom insoles #1 ea 09/22/22 05/30/24 Unknown Rx albuterol sulfate 90 mcg/actuation 2 puff inhalation Q4H PRN 07/26/23 05/30/24 Unknown History aerosol inhaler Shortness Of Breath clonidine HCl 0.2 mg tablet 0.2 mg PO BID PRN high bp 07/26/23 05/30/24 05/28/24 History telmisartan 80 1 tab PO DAILY 07/26/23 05/30/24 05/29/24 History mg-hydrochlorothiazide 25 mg tablet (Micardis HCT) fluoxetine 10 mg capsule 10 mg PO DAILY 05/24/24 05/30/24 05/29/24 History Allergies Allergy/AdvReac Type Severity Reaction Status Date / Time paroxetine (From Paxil) AdvReac Unknown dizziness, Verified 05/30/24 10:44 sexual dysfunction Current Medications Generic Name Dose Route Start Last Admin Trade Name Freq PRN Reason Stop Dose Admin Sodium Chloride 500 mls @ 15 mls/hr 05/30/24 10:41 05/30/24 10:54 Sodium Chloride 0.9% IV 05/31/24 10:40 15 mls/hr .Q24H PRN Administration COLONOSCOPY FLUIDS PFSH Anesthesia Medical History Atypical chest pain Tachycardia Benign essential hypertension with target blood pressure below 140/90 Palpitation Herpes simplex Anxiety Hypertension IBS (irritable bowel syndrome) Tendonitis of foot Surgical History Hx of cholecystectomy Hx of appendectomy Family History Other Cancer Diabetes Hyperlipidemia Hypertension Denies family history of CAD (coronary artery disease) Clotting disorder Dementia Chronic kidney disease (CKD) Anesthesia complication Bleeding disorder Stroke Social History Smoking and tobacco/nicotine status: never used tobacco/nicotine Alcohol intake: current Alcohol intake frequency: 3 or more drinks per day Substance/Drug Use: never Data Anesthesia Cardiac Studies: Sestamibi Stress Test (Cardiology) 08/05/22 Stress Echocardiogram 12/06/19 Cardiac Event Monitor 05/28/22
--- NOTE | 2024-05-30 12:28 | PC.NURSE ---
OPENED BIOPSY FORCEPS TO RETRIEVE A BX BUT UNABLE TO FIND AREA AGAIN
[2024-05-30 12:32] VITALS: BP 121/92; PULSE 92; RESP 20; TEMP 36.6; O2SAT 95
[2024-05-30 12:43] VITALS: BP 130/72; PULSE 82; RESP 18; O2SAT 96
--- NOTE | 2024-05-30 13:09 | ANE.PACU2 ---
Inpatient post-anesthesia follow up: Airway intact: Yes Vital signs: Temperature 97.8 F Pulse Rate 82 Respiratory Rate 18 Blood Pressure 130/72 Pulse Oximetry 96 Oxygen Delivery Me thod Room Air Oxygen Flow Rate Fraction of Inspir ed Oxygen Hydration adequate: Yes Nausea and vomiting: No Pain level: 1 Mental status: Baseline
== END 2024-05-30 13:09 | disposition home or self-care (01) ==
PROVIDERS: PCP Nurse Practitioner Family; Visit Provider Student in an Organized Health Care Education/Training Program
PROC: 0DJD8ZZ Inspection of Lower Intestinal Tract, Via Natural or Artificial Opening Endoscopic (ICD-10-PCS; CPT 45378; principal; 2024-05-30 11:45)
DX: Z12.11 Encounter for screening for malignant neoplasm of colon (principal); G47.30 Sleep apnea, unspecified; I49.9 Cardiac arrhythmia, unspecified; I10 Essential (primary) hypertension; Z79.899 Other long term (current) drug therapy; Z88.8 Allergy status to other drugs, medicaments and biological substances; Z90.49 Acquired absence of other specified parts of digestive tract
CPT/HCPCS: 45378; J2704; J7040

== ENCOUNTER → 2024-06-13 09:40 | Outpatient (BNVA) | payer OTHER, SELFPAY | PROVIDERS: PCP Nurse Practitioner Family; Visit Provider Anesthesiology Pain Medicine | DX: M54.50 Low back pain, unspecified (principal); G89.29 Other chronic pain; M47.816 Spondylosis without myelopathy or radiculopathy, lumbar region | CPT/HCPCS: 99214 ==

== ENCOUNTER → 2024-06-27 13:57 | Outpatient (BNVA) | payer OTHER, SELFPAY | PROVIDERS: PCP Nurse Practitioner Family; Visit Provider Podiatrist Foot & Ankle Surgery | DX: M72.2 Plantar fascial fibromatosis (principal) | CPT/HCPCS: 99213 ==

== ENCOUNTER → 2024-06-28 13:25 | Outpatient (BNVA) | payer OTHER, SELFPAY | PROVIDERS: PCP Nurse Practitioner Family; Visit Provider Anesthesiology Pain Medicine | DX: M47.816 Spondylosis without myelopathy or radiculopathy, lumbar region (principal); M54.50 Low back pain, unspecified; G89.29 Other chronic pain | CPT/HCPCS: 64635; 64636; J1010 ==

== ENCOUNTER → 2024-07-17 14:32 | Outpatient (BNVA) | payer OTHER, SELFPAY | PROVIDERS: PCP Nurse Practitioner Family; Visit Provider Anesthesiology Pain Medicine | DX: M54.50 Low back pain, unspecified (principal); G89.29 Other chronic pain; M47.816 Spondylosis without myelopathy or radiculopathy, lumbar region | CPT/HCPCS: 99214 ==

== ENCOUNTER → 2024-09-05 10:19 | Outpatient (BNVA) | payer OTHER, SELFPAY | PROVIDERS: PCP Nurse Practitioner Family; Visit Provider Podiatrist Foot & Ankle Surgery | DX: M72.2 Plantar fascial fibromatosis (principal); M79.672 Pain in left foot; M24.572 Contracture, left ankle | CPT/HCPCS: 20550; 99213; J1100; J3301; J3490 ==

== ENCOUNTER → 2024-11-22 09:31 | Outpatient (BNVA) | payer OTHER, SELFPAY | PROVIDERS: PCP Nurse Practitioner Family; Visit Provider Podiatrist Foot & Ankle Surgery | DX: M72.2 Plantar fascial fibromatosis (principal); M24.572 Contracture, left ankle | CPT/HCPCS: 20550; 99213; J1100; J3301; J3490 ==

== ENCOUNTER → 2025-01-15 13:11 | Outpatient (BNVA) | payer OTHER, SELFPAY | PROVIDERS: PCP Nurse Practitioner Family; Visit Provider Anesthesiology Pain Medicine | DX: M54.50 Low back pain, unspecified (principal); G89.29 Other chronic pain; M47.816 Spondylosis without myelopathy or radiculopathy, lumbar region | CPT/HCPCS: 99214 ==

== ENCOUNTER → 2025-02-06 13:41 | Outpatient (BNVA) | payer OTHER, SELFPAY | PROVIDERS: PCP Nurse Practitioner Family; Visit Provider Anesthesiology Pain Medicine | DX: M47.816 Spondylosis without myelopathy or radiculopathy, lumbar region (principal) | CPT/HCPCS: 64493; 64494; 64495; J1010; J3490; J9999 ==

== ENCOUNTER → 2025-02-26 10:13 | Outpatient (BNVA) | payer OTHER, SELFPAY | PROVIDERS: PCP Nurse Practitioner Family; Visit Provider Anesthesiology Pain Medicine | DX: M47.816 Spondylosis without myelopathy or radiculopathy, lumbar region (principal); G89.29 Other chronic pain | CPT/HCPCS: 99214 ==